=== PATIENT | male | born 1950 | race Caucasian/White ===

== ENCOUNTER 2019-09-06 19:20 | Inpatient (IN) | payer OTHER ==
[~2019-09-06 19:20] MED LIST: ISOVUE-370 76%-LOCM 1 ML ONE
[2019-09-06] MEDS ORDERED: Rocuronium Bromide 10 MG/ML (10ML VIAL) ONE (19:53)
--- NOTE | 2019-09-06 20:02 | CT ---
CT OF BRAIN PERFORMED WITHOUT CONTRAST ENHANCEMENT: 09/06/19 HISTORY: Patient found unresponsive. There is some mild ventricular and sulcal prominence. There is no signs of intracerebral hemorrhage o r extra-axial fluid collections. No mass lesion or mass effect. The mastoid air cells and visualized sinuses are clear. IMPRESSION: No acute intracranial abnormalities. POS: [facility]
[2019-09-06 20:06] LABS: #Basophils 0.1 thou/uL (0.0-0.2); #Eosinphils 0.8 thou/uL (0.0-0.7); #Lymphocytes 1.6 thou/uL (1.20-3.40); #Monocytes 0.7 thou/uL (0.11-0.59); #Neutrophils 5.5 thou/uL (1.40-6.50); %Basophils 0.6 % (0.0-1.0); %Eosinophils 9.3 % (0.0-10.0); %Lymphocytes 18.4 % (21.0-51.0); %Monocytes 7.9 % (0.0-10.0); %Neutrophils 63.9 % (42.0-75.0); Hemoglobin 15.5 g/dL (14.0-18.0); Mean Corpuscular HGB CONC 33.5 g/dL (32.0-36.0); Mean Corpuscular Hemoglobin 31.3 pg (27.0-31.0); Mean Corpuscular Volume 93.6 fL (78.0-98.0); Mean Platelet Volume 7.4 fL (7.4-10.4); Platelet Count 238 thou/uL (130-400); RBC Distribution Width 12.2 % (11.5-14.5); Red Blood Cell (RBC) Count 4.96 mill/uL (4.70-6.10); White Blood Cell (WBC) Count 8.6 thou/uL (4.8-10.8)
[2019-09-06] MEDS ORDERED: fentaNYL Citrate/PF 2,000 MCG in Sodium Chloride 0.9% 60 ML IV SCH (20:11)
[2019-09-06 20:19] LABS: INR-International Normal Ratio 1.8; PTT 33.5 SEC (22.9-36.1)
[2019-09-06 20:23] LABS: ALT (SGPT) 15 U/L (8-55); AST (SGOT) 22 U/L (5-34); Albumin 3.9 g/dL (3.4-4.8); Alkaline Phosphatase 82 U/L (40-110); Anion Gap 15 mmol/L (10-20); BUN (Urea Nitrogen) 16 mg/dL (8.4-25.7); Bilirubin, Total 0.6 mg/dL (0.2-1.2); CK (CPK) 864 U/L (30-200); Calc. Creatinine Clearance 0 mL/min (70-130); Calcium 9.4 mg/dL (7.8-10.44); Carbon Dioxide 22 mmol/L (23-31); Chloride 105 mmol/L (98-107); Estimated GFR-MDRD 56; Globulin 3.3 g/dL (2.4-3.5); Glucose 135 mg/dL (80-115); Potassium 4.5 mmol/L (3.5-5.1); Protein, Total 7.2 g/dL (5.8-8.1); Sodium 137 mmol/L (136-145)
[2019-09-06 20:32] LABS: Actual Bicarbonate (HCO3a) 20.3 mEq/L (22-28); Analyzer IN Cardio ER; Base Excess (BEa) -2.5 mEq/L (-2.0 to +3.0); CO2 Tension 30.5 mmHg (35.0-45.0); Calcium, Ionized 1.22 mmol/L (1.12-1.30); Carboxyhemoglobin (COHb) 0.8 gm% (0.0-3.0); Hemoglobin (Hb) 15.7 g/dL (14.0-18.0); O2 Tension (PaO2) 215.5 mmHg (> 80.0); Potassium - ABG Lab 4.29 mmol/L (3.70-5.30); pH, Arterial 7.44 (7.35-7.45)
[2019-09-06 20:34] LABS: ALV-art Gradient 459.375 (0-20); Puncture Site RRA
[2019-09-06 20:36] LABS: CKMB 6.4 ng/mL (0-6.6)
[2019-09-06 20:47] LABS: Acetaminophen Less than 6.0 mcg/mL (10.0-30.0); Alcohol Less than 10 mg/dL (Less than 10); Salicylate Less than 8.0 mg/dL (15.0-30.0)
[2019-09-06 20:51] LABS: Bilirubin Negative (Negative); Blood, Urine Negative (Negative); Clarity Clear (Clear); Glucose, Urine (Dipstick) Normal (Negative); Leukocyte Negative Leu/uL (Negative); Nitrite Negative (Negative); Protein, Urine (Dipstick) Negative (Neg-Trace); Urobilinogen Normal mg/dL (Less than 2)
[2019-09-06 21:03] LABS: Amphetamine Not Detected (NotDetected); Barbiturates Screen Not Detected (NotDetected); Benzodiazepine Screen Not Detected (NotDetected); Cocaine Metabolite Screen Not Detected (NotDetected); Medtox Control Line Valid? VALID (VALID); Medtox Reader # READER 4; Methadone Not Detected (NotDetected); Methamphetamine Not Detected (NotDetected); Opiate Screen Not Detected (NotDetected); Oxycodone Screen Not Detected (NotDetected); Phencyclidine (PCP) Not Detected (NotDetected); THC/Cannabinoid Screen Not Detected (NotDetected); Tricyclic Screen Not Detected (NotDetected)
--- NOTE | 2019-09-06 21:05 | RAD ---
XR Chest 1 View Portable HISTORY: Postintubation COMPARISON: 01/24/2013 study FINDINGS: Heart size is enlarged. There are postop sternotomy changes and defibrillator. Atelectatic changes are seen in the lung bases. The endotracheal tube is in satisfactory position. The NG tube is difficult to visualize but I believ e to be below the hemidiaphragm. IMPRESSION: Endotracheal tube in satisfactory position
--- NOTE | 2019-09-06 22:07 | CT ---
CT angiogram of head and neck performed with intravenous contrast enhancement with 3-D reconstruction s: HISTORY: Altered mental status. Unresponsive. Asymmetric pupils. COMPARISON: CT done earlier today. FINDINGS: Lung apices show chronic appearing change. Endotracheal tube appears to be in satisfactory position. The thyroid gland is normal. Parotid and submandibular regions appear unremarkable. There is a separate origin of the left common carotid artery. The vertebral arteries appear codominan t is some moderate atherosclerotic narrowing of the left vertebral artery near the level the foramen magnum. The right vertebral makes the main contribution to the basilar artery. The right common carotid internal and external carotid arteries show no significant stenosis nascent criteria, there is some calcified plaque formation present at the origin of the internal and external carotid arteries. There is also atherosclerotic plaque at the origin the left common carotid artery but no stenosis of the common internal or external carotid arteries. CT angiogram of head: The anterior and middle cerebral arteries and their branches appear unremarkabl e. The basilar artery and posterior cerebral arteries appear unremarkable. IMPRESSION: Essentially unremarkable CT angiogram of head and neck. Incidental note is made is some m ild to moderate narrowing of the distal left vertebral artery.
[2019-09-06] MEDS ORDERED: Ondansetron ODT 4 MG TAB PO PRN (23:13)
[2019-09-06] MEDS ORDERED: hydrALAZINE 20 MG/ML VIAL SLOW IVP PRN (23:13)
[2019-09-06] MEDS ORDERED: CCU Electrolyte Replacement 1 EACH FS ONE (23:13)
[2019-09-06] MEDS ORDERED: Ondansetron PF 4 MG/2 ML Vial IVP PRN (23:13)
[2019-09-06] MEDS ORDERED: CCU ELECTROLYTE REPLACEMENT PROTOCOL FS PRN (23:18)
[2019-09-06] MEDS ORDERED: Potassium Chloride 20 MEQ TAB PO PRN (23:18)
[2019-09-06] MEDS ORDERED: Potassium Phosphate 12 MMOL in Sodium Chloride 0.9% 250 ML 250 ML IV PRN (23:18)
[2019-09-06] MEDS ORDERED: Potassium Chloride 40 MEQ in Premix Bag 1 BAG IVPB PRN (23:18)
[2019-09-06] MEDS ORDERED: Magnesium Oxide 400 MG TAB PO PRN ×2 (23:18)
[2019-09-06] MEDS ORDERED: Potassium Phosphate 15 MMOL in Sodium Chloride 0.9% 250 ML 250 ML IV PRN (23:18)
[2019-09-06] MEDS ORDERED: Magnesium 2 GM/50 ML 2 GM in Premix Bag 1 BAG IVPB PRN (23:18)
[2019-09-06] MEDS ORDERED: PHOS-NAK 1 PKT PACK PO PRN ×2 (23:18)
[2019-09-06] MEDS ORDERED: Potassium Phosphate 9 MMOL in Sodium Chloride 0.9% 100 ML IVPB PRN (23:18)
[2019-09-06] MEDS ORDERED: Potassium Chloride 40 MEQ in Sodium Chloride 0.9% 250 ML 250 ML IVPB PRN (23:18)
[2019-09-07] MEDS ORDERED: HumaLOG 300 UNITS/3 ML VIAL SC PRN (00:12)
[2019-09-07] MEDS ORDERED: Dextrose 5% in Water 1,000 ML IV PRN (00:12)
[2019-09-07] MEDS ORDERED: Dextrose 50% Abboject 50 ML SYRINGE SLOW IVP PRN (00:12)
[2019-09-07] MEDS: Sodium Chloride 0.9% 1,000 ML IV SCH ×2 (00:25→19:34)
[2019-09-07 01:08] LABS: Troponin I 0.023 ng/mL (< 0.028)
--- NOTE | 2019-09-07 01:37 | HP ---
PRIMARY CARE PROVIDER: [facility]. CHIEF COMPLAINT: Found down. HISTORY OF PRESENT ILLNESS: This is a 69-year-old male, who presents to [facility] Emergency Department in transfer from [facility], where patient is a current inmate. The patient was apparently discovered in his cell, unresponsive by the guards. The time course the patient was down his unknown and patient is unable to provide any specific history due to mechanical ventilation and unresponsiveness. The history is obtained after review of electronic medical records, as well as discussions with the emergency room attending and the guards at the bedside. The patient is currently incarcerated at the [facility]. The patient is normally ambulatory according to the guards and does not use an assistive device. Due to patient's altered mental status and inability to protect airway, the patient was intubated. The patient apparently had pulse and did not require CPR. The patient underwent extensive evaluation in the emergency room including CT of the brain showing no acute intracranial process. EKG showed atrial sensed V paced rhythm in the context of pacemaker/defibrillator. Screening metabolic survey was essentially unrevealing with ammonia level of 29 and glucose in the 130s. Urine drug screen was unremarkable and patient was stabilized in the emergency room and transferred to the Critical Care Unit for further evaluation. PAST MEDICAL HISTORY: 1. Coronary artery disease. 2. Diabetes mellitus type 2, insulin requiring. 3. Atrial fibrillation/flutter. 4. Chronic kidney disease, stage 3. 5. Congestive heart failure, unknown type. 6. Chronic anticoagulation with Coumadin. 7. Hyperlipidemia. 8. Hypertension. 9. Prostate carcinoma. PAST SURGICAL HISTORY: Status post cardiac pacemaker placement. CURRENT MEDICATIONS: 1. Plavix 75 mg p.o. daily. 2. Ferrous sulfate 325 mg 1 tablet p.o. b.i.d. 3. Mexiletine 150 mg p.o. t.i.d. 4. Novolin 40 units subcutaneously q.a.m. and 27 units at bedtime. 5. Novolin R insulin sliding scale. 6. Ranexa 500 mg p.o. b.i.d. 7. Coumadin 5 mg p.o. daily. 8. Lipitor 80 mg p.o. daily. 9. Lasix 40 mg p.o. b.i.d. 10. Isosorbide mononitrate 60 mg p.o. daily. 11. Lisinopril 20 mg p.o. daily. 12. Metoprolol 25 mg p.o. b.i.d. 13. Nitroglycerin 0.4 mg sublingually q.5 minutes p.r.n. chest pain. 14. Potassium chloride 20 mEq one tablet p.o. daily. 15. Terazosin 5 mg p.o. daily. ALLERGIES: NO KNOWN DRUG ALLERGIES. FAMILY HISTORY: Unobtainable due to patient's altered mental status. SOCIAL HISTORY: Incarcerated at [facility] unit. No current alcohol, tobacco, or illicit drug use. REVIEW OF SYSTEMS: Unobtainable due to patient's altered mental status and respiratory failure. PHYSICAL EXAMINATION: VITAL SIGNS: On admission, blood pressure 146/95, pulse 62, respiratory rate 21, temperature 98 degrees Fahrenheit, O2 saturation 92%. GENERAL APPEARANCE: This is a 69-year-old male, sedate on mechanical ventilation. HEENT: Pupils are minimally reactive to light and accommodation. No scleral icterus. No conjunctival injection. Nares patent. OP is clear. ET tube in place. NECK: Supple. No cervical adenopathy. No thyromegaly. No carotid bruits. No JVD appreciated. NECK: Supple. CHEST: Lungs are clear to auscultation bilaterally. CARDIOVASCULAR: S1, S2 without noted murmur, rub, or gallop. Left upper chest wall with pacemaker defibrillator device in place. ABDOMEN: Obese, soft, nontender, and nondistended. No palpable mass. No rebound or guarding elicited. EXTREMITIES: Warm and dry with fair turgor. No clubbing, cyanosis, or asymmetric edema appreciated. Pulses are palpable distally at the dorsalis pedis, posterior tibial, and popliteal arteries bilaterally. Capillary refill less than 2 seconds. : Andino catheter in place with scant clear urine. NEUROLOGIC: Sedate on mechanical ventilation. PERTINENT LABORATORY AND X-RAY FINDINGS: Sodium 137, potassium 4.5, chloride 105, CO2 of 22, anion gap 15, BUN 16, creatinine 1.27, estimated GFR 56, glucose 135, calcium 9.4. LFTs within normal limits. Total CK of 864. Ammonia level 29. Troponin I 0.046. TSH 1.61. CBC within normal limits. PT 21, INR 1.8, PTT 33.5. ABG dated 09/06/2019, showed a pH of 7.44, pCO2 of 31, PO2 of 216, bicarb 20.3, O2 saturation 99% on 100% FiO2. Urinalysis negative. Urine drug screen negative. CT of the brain without contrast dated 09/06/2019, showed no acute intracranial process. CT angiogram of [place] dated 09/06/2019, showed no acute focal stenosis. Portable chest x-ray dated 09/06/2019, showed endotracheal tube in appropriate position. Defibrillator pacemaker device in appropriate positioning. No acute infiltrate identified. EKG dated 09/06/2019, by my interpretation shows A sensed V paced rhythm in the 70s. ASSESSMENT AND PLAN: 1. Acute hypoxic respiratory failure. Exact etiology unclear. We will continue mechanical ventilation with SIMV. Repeat portable chest x-ray and ABG in the a.m. Consult Pulmonology Service in the a.m. for further management. 2. Acute metabolic encephalopathy. We will continue supportive management as outlined previously. Consider MRI imaging of the brain after confirming type of current pacemaker defibrillator. We will interrogate pacemaker defibrillator device in the a.m. 3. Sick sinus syndrome with pacemaker/defibrillator. We will interrogate pacemaker device in the a.m. We will confirm if MRI compatible. 4. Chronic kidney disease, stage 3. Avoid nephrotoxic agents and limit contrast exposure. Continue low volume intravenous normal saline at 50 mL/h. 5. Chronic anticoagulation. Repeat PT/INR in the a.m. Confirm Coumadin dosing. 6. Prophylaxis. SCDs while in bed. Pepcid 20 mg IV b.i.d. 7. Code status is full. Surrogate medical decision maker is [place] [facility] [employer]. Job ID: [id number]
[2019-09-07 06:11] LABS: Hemoglobin A1c 6.5 % (4.0-6.0); INR-International Normal Ratio 1.6; Prothrombin Time 19.2 SEC (12.0-14.7)
[2019-09-07 06:27] LABS: ALT (SGPT) 17 U/L (8-55); AST (SGOT) 26 U/L (5-34); Albumin 3.8 g/dL (3.4-4.8); Alkaline Phosphatase 88 U/L (40-110); Anion Gap 18 mmol/L (10-20); BUN (Urea Nitrogen) 16 mg/dL (8.4-25.7); Bilirubin, Total 1.1 mg/dL (0.2-1.2); CK (CPK) 955 U/L (30-200); Calc. Creatinine Clearance 85 mL/min (70-130); Calcium 9.3 mg/dL (7.8-10.44); Carbon Dioxide 22 mmol/L (23-31); Chloride 104 mmol/L (98-107); Estimated GFR-MDRD 57; Globulin 2.8 g/dL (2.4-3.5); Glucose 117 mg/dL (80-115); Magnesium 2.2 mg/dL (1.6-2.6); Potassium 4.9 mmol/L (3.5-5.1); Protein, Total 6.6 g/dL (5.8-8.1); Sodium 139 mmol/L (136-145)
[2019-09-07 06:29] LABS: Troponin I 0.054 ng/mL (< 0.028)
[2019-09-07 06:31] LABS: Band 2 % (5-11); Eosinophils 9 % (0-10); Hemoglobin 16.1 g/dL (14.0-18.0); Lymphocytes 25 % (21-51); MDiff Complete? YES; Mean Corpuscular HGB CONC 33.4 g/dL (32.0-36.0); Mean Corpuscular Hemoglobin 32.9 pg (27.0-31.0); Mean Corpuscular Volume 98.4 fL (78.0-98.0); Mean Platelet Volume 7.8 fL (7.4-10.4); Monocytes 10 % (0-10); Neutrophil 54 % (42-75); Platelet Count 228 thou/uL (130-400); Platelet Morphology Comment Appears Adequate; RBC Distribution Width 12.4 % (11.5-14.5); RBC Morphology Normal; Red Blood Cell (RBC) Count 4.89 mill/uL (4.70-6.10); White Blood Cell (WBC) Count 7.3 thou/uL (4.8-10.8)
[2019-09-07 06:49] LABS: Actual Bicarbonate (HCO3a) 25.6 mEq/L (22-28); Base Excess (BEa) 2.9 mEq/L (-2.0 to +3.0); CO2 Tension 33.9 mmHg (35.0-45.0); Calcium, Ionized 1.19 mmol/L (1.12-1.30); Carboxyhemoglobin (COHb) 1.4 gm% (0.0-3.0); Hemoglobin (Hb) 15.4 g/dL (14.0-18.0); O2 Tension (PaO2) 70.2 mmHg (> 80.0); Potassium - ABG Lab 4.18 mmol/L (3.70-5.30)
[2019-09-07 07:05] LABS: Puncture Site RBRACH
[2019-09-07 07:06] LABS: ALV-art Gradient 208.275 (0-20)
--- NOTE | 2019-09-07 07:42 | RAD ---
XR Chest 1 View Portable History: Respiratory failure Comparison: Radiograph prior day Findings: Endotracheal tube tip sits at the level of clavicles. Mediastinal evaluation is limited due to the overlying wires. Cardiac device appears similar. Heart size is enlarged. Progressive lower lobe atelectasis. Small eff usions. Enteric tube tip not well seen. Impression: Progressive volume loss and lower lobe atelectatic changes.
--- NOTE | 2019-09-07 08:28 | CON ---
DATE OF CONSULTATION: 09/07/2019 TIME SPENT: 35 minutes critical care time. REASON FOR CONSULTATION: Critical care management. HISTORY OF PRESENT ILLNESS: This is a 69-year-old male, who apparently was found down in his cell, not sure how long he had been down. He was intubated secondary to an inability to protect his airway. 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 He has been stable since admission to the critical care unit, they have had problems with his pacemaker capturing. PAST MEDICAL HISTORY: 1. Coronary artery disease. 2. Diabetes mellitus type 2. 3. Atrial fibrillation/flutter. 4. Chronic kidney disease stage 3. 5. Congestive heart failure. 6. Chronically anticoagulated on Coumadin. 7. Hyperlipidemia. 8. Hypertension. 9. Prostate cancer. PAST SURGICAL HISTORY: Pacemaker placement. MEDICATIONS: Prior to admission, Plavix 75 mg daily, iron sulfate 325 mg b.i.d., mexiletine 150 mg t.i.d., Novolin insulin 40 units in the morning and 27 units in the evening, regular insulin sliding scale, Ranexa 500 mg b.i.d., Coumadin 5 mg daily, Lipitor 80 mg daily, Lasix 40 mg b.i.d., isosorbide 60 mg daily, lisinopril 20 mg daily, metoprolol 25 mg b.i.d., nitroglycerin p.r.n., potassium chloride 20 mEq daily, and trazodone 5 mg daily. ALLERGIES: NONE. FAMILY MEDICAL HISTORY: Unremarkable. SOCIAL HISTORY: [facility] inmate. No alcohol, tobacco, or illicit drug use. REVIEW OF SYSTEMS: Cannot be obtained as the patient is currently intubated. PHYSICAL EXAMINATION: VITAL SIGNS: Heart rate 65, blood pressure 110/58, respiratory rate 16, O2 saturation 100%, and temperature 99.8. He is currently on a fentanyl drip. NEUROLOGIC: He will wake up. His pupils are about 4 mm and do not react briskly to light. He is able to follow commands without difficulty. HEENT: Otherwise unremarkable. NECK: No adenopathy or JVD. LUNGS: Fairly clear anteriorly. CARDIAC: S1, S2. Intermittently paced. ABDOMEN: Soft, nontender to palpation. EXTREMITIES: No clubbing, cyanosis, or edema. LABORATORY DATA: INR is 1.6. White blood cell count 7.3, hematocrit 48.2, and platelet count 228. PH of 7.50, pCO2 of 33, pO2 of 70 on SIMV rate 14, tidal volume 550, PEEP 5, pressure support 10, FiO2 45%. Sodium 139, potassium 4.9, chloride 104, CO2 of 22, BUN 16, creatinine 1.3 glucose 117. CK 955. BNP 172.7. Chest x-ray demonstrates ET tube in good position. Increased interstitial markings bilaterally. Some edema on the right. ASSESSMENT: 1. Status post cardiopulmonary arrest. 2. Encephalopathy. 3. Sick sinus syndrome. 4. Chronic kidney disease. 5. Diabetes mellitus. PLAN: 1. Pacemaker needs to be interrogated and likely Cardiology needs to be involved. 2. Continue mechanical ventilation for the time being. 3. Restart his warfarin. 4. Adjust mechanical ventilation settings. 5. Hopefully extubate soon. Job ID: [id number]
[2019-09-07] MEDS: Famotidine/PF 20 mg/2ml Vial SLOW IVP SCH ×2 (08:39→22:22)
[2019-09-07] MEDS: Famotidine 20 MG TAB PER TUBE SCH ×2 (08:40→21:13)
[2019-09-07] MEDS ORDERED: Prevnar 13-Val Conj/PF 0.5 ML SYRINGE IM ONE (09:00)
[2019-09-07] MEDS ORDERED: FLU VACC TS2019-20(65YR UP)/PF 180 MCG/0.5 ML SYRINGE IM ONE (09:00)
--- NOTE | 2019-09-07 11:56 | CON ---
DATE OF CONSULTATION: HISTORY OF PRESENT ILLNESS: The patient is a 69-year-old gentleman, who presented after losing consciousness. The patient apparently has a history of a nonischemic cardiomyopathy. He has had previous placement of an automatic implantable cardiac defibrillator. The patient is incarcerated, and was apparently in his usual state of health when he suddenly lost consciousness. The patient was brought to the [facility] for further evaluation. The patient is intubated and sedated and unable to give a history. PAST MEDICAL HISTORY: 1. Cardiomyopathy. 2. Diabetes mellitus. 3. Hypertension. 4. Coronary artery disease. 5. BPH. PAST SURGICAL HISTORY: MEDICATIONS: Include; 1. Plavix 75 daily. 2. Iron 325 b.i.d. 3. Mexiletine 150 t.i.d. 4. Ranexa 500 b.i.d. 5. Warfarin 2.5 at bedtime. 6. Lipitor 80 at bedtime. 7. Lasix 40 daily. 8. Imdur 60 q.a.m. 9. Lisinopril 20 mg daily. 10. Metoprolol 25 mg p.o. b.i.d. 11. Potassium 20 daily. 12. Terazosin 5 daily. PHYSICAL EXAMINATION: GENERAL: Intubated gentleman, who is sedated. VITAL SIGNS: Blood pressure 134/80. NECK: No jugular venous distention. LUNGS: Clear to auscultation. HEART: Regular rate and rhythm. Normal S1 and S2. ABDOMEN: Distended. EXTREMITIES: Showed trace edema. LABORATORY DATA: Sodium 139, potassium 4.9, chloride 104, bicarbonate 22, BUN 16, creatinine 1.2, and glucose 117. White blood cell count 7.3, hemoglobin 16.1, hematocrit 48.2, and his platelets are 228. IMAGING DATA: His EKG revealed an electronic ventricular pacemaker. IMPRESSION: 1. Status post respiratory arrest. 2. History of severe cardiomyopathy. 3. History of paroxysmal atrial fibrillation. 4. History of automatic implantable cardioverter-defibrillator placement. 5. Diabetes mellitus. 6. Hypertension. PLAN: This gentleman presented with a probable respiratory arrest. The patient's cardiac enzymes revealed no evidence of myocardial infarction. There are no evidence of significant EKG changes. We will check the patient's echocardiogram. The pacemaker and AICD have been interrogated. He did not have ventricular tachycardia at the time of this incident. The patient will continue to be monitored in the ICU. We will follow this patient with you. This is a critical care note, the time is 1 hour. Job ID: [id number]
[2019-09-07] MEDS: Mexiletine HCl 150 MG CAP PO SCH ×2 (14:21→21:13)
--- NOTE | 2019-09-07 14:54 | PDOC.EVN ---
Event Note - Event Note Event Note: Seen and examined. Intubated. Pacemaker to be interrogated. CT of the head negative for acute intracranial pathology. Atrial fibrillation on Coumadin, subtherapeutic. MRI of the brain if defibrillator is compatible.
[2019-09-07] MEDS ORDERED: Warfarin Sodium 2.5 MG TAB PER TUBE SCH (17:00)
[2019-09-07] MEDS: Atorvastatin Calcium 40 MG TAB PO SCH (21:12)
[2019-09-07] MEDS: Carvedilol 3.125 MG TAB PO SCH (21:13)
[2019-09-08] MEDS: Acetaminophen 650 MG Suppository PR PRN ×2 (01:29→13:31)
[2019-09-08] MEDS ORDERED: Vancomycin HCl 1 GM in Premix Bag 1 BAG IVPB SCH (01:30)
[2019-09-08] MEDS: Cefepime 2 GM in Sodium Chloride 0.9% 100 ML IVPB SCH ×2 (02:52→13:35)
[2019-09-08 04:50] LABS: #Eosinphils 0.7 thou/uL (0.0-0.7); #Lymphocytes 1.7 thou/uL (1.20-3.40); #Monocytes 1.3 thou/uL (0.11-0.59); #Neutrophils 7.5 thou/uL (1.40-6.50); %Basophils 0.3 % (0.0-1.0); %Eosinophils 5.9 % (0.0-10.0); %Lymphocytes 15.5 % (21.0-51.0); %Monocytes 11.4 % (0.0-10.0); %Neutrophils 66.9 % (42.0-75.0); Hemoglobin 15.1 g/dL (14.0-18.0); Mean Corpuscular Hemoglobin 31.6 pg (27.0-31.0); Mean Corpuscular Volume 95.5 fL (78.0-98.0); Mean Platelet Volume 7.9 fL (7.4-10.4); Platelet Count 211 thou/uL (130-400); RBC Distribution Width 12.5 % (11.5-14.5); Red Blood Cell (RBC) Count 4.79 mill/uL (4.70-6.10); White Blood Cell (WBC) Count 11.2 thou/uL (4.8-10.8)
[2019-09-08 04:58] LABS: INR-International Normal Ratio 1.6; Prothrombin Time 19.4 SEC (12.0-14.7)
[2019-09-08 05:14] LABS: Anion Gap 18 mmol/L (10-20); BUN (Urea Nitrogen) 21 mg/dL (8.4-25.7); Calc. Creatinine Clearance 57 mL/min (70-130); Calcium 9.1 mg/dL (7.8-10.44); Carbon Dioxide 19 mmol/L (23-31); Chloride 108 mmol/L (98-107); Estimated GFR-MDRD 36; Glucose 126 mg/dL (80-115); Potassium 4.8 mmol/L (3.5-5.1); Sodium 140 mmol/L (136-145)
[2019-09-08 06:57] LABS: Actual Bicarbonate (HCO3a) 25.9 mEq/L (22-28); Base Excess (BEa) 1.3 mEq/L (-2.0 to +3.0); CO2 Tension 40.8 mmHg (35.0-45.0); Calcium, Ionized 1.22 mmol/L (1.12-1.30); Carboxyhemoglobin (COHb) 1.4 gm% (0.0-3.0); Hemoglobin (Hb) 15.1 g/dL (14.0-18.0); O2 Tension (PaO2) 62.2 mmHg (> 80.0); Potassium - ABG Lab 4.35 mmol/L (3.70-5.30); pH, Arterial 7.42 (7.35-7.45)
[2019-09-08 07:16] LABS: Puncture Site RBRACH
--- NOTE | 2019-09-08 07:51 | RAD ---
XR Chest 1 View Portable History: Pneumonia Comparison: Radiograph prior day Findings: Ventricular tube similar. Enteric tube tip not well seen. Exam is limited due to rightward rotation. Layering effusions and bibasilar atelectatic changes. No pneumothorax. Heart size markedly enlarged. Impression: Enlarging bibasilar effusions and progressive atelectasis.
[2019-09-08] MEDS ORDERED: DC Sedation Protocol FS ONE (08:20)
[2019-09-08] MEDS ORDERED: Furosemide 40 MG/4 ML VIAL SLOW IVP SCH (08:30)
[2019-09-08] MEDS ORDERED: Furosemide 20 MG/2 ML VIAL IVP SCH (08:30)
--- NOTE | 2019-09-08 08:58 | PRG ---
DATE OF SERVICE: 09/08/2019 35 minutes of critical care time. SUBJECTIVE: The patient is awake, follows commands. He will not open his eyes for some reason. OBJECTIVE: VITAL SIGNS: His temperature is 100.3. It has been as high as 102.1, pulse 70, blood pressure 104/64, O2 saturation 97%. A 24-hour intake 1660, output 1235. HEENT: Unremarkable. NECK: No adenopathy or JVD. LUNGS: Fairly clear anteriorly. CARDIAC: S1, S2, regular. Occasionally paced. ABDOMEN: Soft, nontender. EXTREMITIES: No clubbing, cyanosis, or edema. IMAGING STUDIES: His chest x-ray shows bilateral pulmonary edema. His echocardiogram showed an EF of 10% to 15% with impaired relaxation. LABORATORY DATA: Sodium 140, potassium 4.8, chloride 108, CO2 of 19, BUN 21, creatinine 1.8, glucose 126. White blood cell count 11.2, hematocrit 45.7, and platelet count 211. PH of 7.42, pCO2 of 40, PO2 of 62 on SIMV rate of 10, tidal volume 500, PEEP 5, pressure support 10, FiO2 40%. ASSESSMENT: 1. Status post cardiopulmonary arrest. 2. Encephalopathy. 3. Cardiomyopathy with decreased ejection fraction. 4. Sick sinus syndrome. 5. Chronic kidney disease. 6. Diabetes mellitus. PLAN: 1. Extubation trial. 2. Warfarin was restarted yesterday. 3. Stop IV fluids. Give one dose of Lasix. 4. Continue IV antibiotics. 5. Keep in ICU for today. 6. Continue to follow daily PT and INR. Job ID: [id number]
[2019-09-08] MEDS ORDERED: Lisinopril 20 MG TAB PO SCH (09:00)
[2019-09-08] MEDS: Carvedilol 3.125 MG TAB PO SCH ×2 (10:19→21:18)
[2019-09-08] MEDS: Clopidogrel Bisulfate 75 MG TAB PO SCH (10:20)
[2019-09-08] MEDS: Famotidine 20 MG TAB PER TUBE SCH ×2 (10:20→21:19)
[2019-09-08] MEDS: Famotidine/PF 20 mg/2ml Vial SLOW IVP SCH ×2 (10:22→21:18)
[2019-09-08] MEDS: Mexiletine HCl 150 MG CAP PO SCH ×3 (10:23→21:18)
--- NOTE | 2019-09-08 11:45 | PDOC.HOSPP ---
- Subjective Subjective: Seen and examined. Intubated and intensive care unit. Patient withdraws all for limbs from noxious stimuli. Coumadin sub therapeutic on admission, concern for CVA. MRI of the brain if his pacemaker is compatible. [employer] guards at bedside. - Objective Vital Signs & Weight: Vital Signs (12 hours) Temp Pulse Resp BP Pulse Ox 09/08/19 10:22 97/58 L 09/08/19 09:30 93 22 H 95 09/08/19 07:16 66 09/08/19 06:00 19 09/08/19 04:23 100.3 F H 09/08/19 04:00 17 09/08/19 03:00 100.3 F H 09/08/19 02:07 73 97/58 L 09/08/19 02:00 18 09/08/19 01:00 KENO ATTENDANT 102.1 F H Weight Admit Weight 238 lb 15.697 oz Weight 238 lb 15.697 oz Most Recent Monitor Data Heart Rate from ECG 70 NIBP 104/64 NIBP BP-Mean 77 Respiration from ECG 19 SpO2 97 I&O: 09/07/19 09/08/19 09/09/19 07:59 06:59 06:59 Intake Total Output Total Balance Result Diagrams: 09/08/19 04:37 09/08/19 04:37 Additional Labs: Accuchecks 09/08/19 09/08/19 09/07/19 10:21 00:55 22:13 POC Glucose 146 H 114 H 127 H 09/07/19 15:57 POC Glucose 137 H Radiology Reviewed by me: Yes Hospitalist ROS - Review of Systems ROS unobtainable: due to endotracheal tube - Medication Medications: Active Medications Generic Name Dose Route Start Last Admin Trade Name Freq PRN Reason Stop Dose Admin Acetaminophen 650 mg 09/06/19 23:13 09/08/19 01:29 KENO ATTENDANT Tylenol KS 650 mg Q4H PRN Administration Fever > 101 Atorvastatin Calcium 80 mg 09/07/19 21:00 09/07/19 21:12 Lipitor PO 80 mg HS CYDNEY Administration Carvedilol 3.125 mg 09/07/19 21:00 09/08/19 10:19 Coreg PO Not Given BID CYDNEY Clopidogrel Bisulfate 75 mg 09/08/19 09:00 09/08/19 10:20 Plavix PO Not Given DAILY CYDNEY Famotidine 20 mg 09/07/19 09:00 09/08/19 10:22 Pepcid SLOW IVP 20 mg Q12HR CYDNEY Administration Famotidine 20 mg 09/07/19 09:00 09/08/19 10:20 Pepcid PER TUBE Not Given BID CYDNEY Cefepime HCl 2 gm/ Sodium 100 mls @ 200 mls/hr 09/08/19 02:00 09/08/19 02:52 Chloride IVPB 100 mls 0200,1400 CYDNEY Administration Isosorbide Mononitrate 60 mg 09/08/19 09:00 09/08/19 10:22 Imdur PO Not Given DAILY CYDNEY Mexiletine HCl 150 mg 09/07/19 15:00 09/08/19 10:23 Mexiletine Hcl PO Not Given TID CYDNEY Ranolazine 500 mg 09/07/19 21:00 09/08/19 10:23 Ranexa PO Not Given BID CYDNEY Sodium Chloride 10 ml 09/07/19 09:00 09/08/19 10:23 Flush - Normal Saline IVF 10 ml Q12HR CYDNEY Administration - Exam General Appearance: NAD Eye: anicteric sclera ENT: normocephalic atraumatic, moist mucosa Neck: supple, symmetric, no JVD Heart: no murmur, no gallops, no rubs, irregular Respiratory: CTAB, no wheezes, no rales, no ronchi Gastrointestinal: soft, non-tender, non-distended, no guarding, no rigidity Extremities: no edema Skin: no lesions, no rashes Neurological - other findings: No appreciable focal neurologic deficits. Withdraws all 4 limbs to noxious Musculoskeletal: no muscle wasting Psychiatric: not oriented Hosp A/P (1) Acute respiratory failure Code(s): J96.00 - ACUTE RESPIRATORY FAILURE, UNSP W HYPOXIA OR HYPERCAPNIA Status: Acute (2) Afib Code(s): I48.91 - UNSPECIFIED ATRIAL FIBRILLATION Status: Chronic (3) Pacemaker Code(s): Z95.0 - PRESENCE OF CARDIAC PACEMAKER Status: Chronic (4) AMS (altered mental status) Code(s): R41.82 - ALTERED MENTAL STATUS, UNSPECIFIED Status: Acute (5) Syncope and collapse Code(s): R55 - SYNCOPE AND COLLAPSE Status: Acute (6) CAD (coronary artery disease) Code(s): I25.10 - ATHSCL HEART DISEASE OF [place] CORONARY ARTERY W/O ANG PCTRS Status: Acute (7) CHF (congestive heart failure) Code(s): I50.9 - HEART FAILURE, UNSPECIFIED Status: Acute (8) DM type 2, uncontrolled, with renal complications Code(s): E11.29 - TYPE 2 DIABETES MELLITUS W OTH DIABETIC KIDNEY COMPLICATION; E11.65 - TYPE 2 DIABETES MELLITUS WITH HYPERGLYCEMIA Status: Acute (9) CKD (chronic kidney disease) stage 3, GFR 30-59 ml/min Code(s): N18.3 - CHRONIC KIDNEY DISEASE, STAGE 3 (MODERATE) Status: Acute (10) HTN (hypertension) Code(s): I10 - ESSENTIAL (PRIMARY) HYPERTENSION Status: Acute (11) HLD (hyperlipidemia) Code(s): E78.5 - HYPERLIPIDEMIA, UNSPECIFIED Status: Acute (12) CLAUDE (acute kidney injury) Code(s): N17.9 - ACUTE KIDNEY FAILURE, UNSPECIFIED Status: Acute - Plan Plan: Intensive care unit pulmonology consultation, recommendations appreciated Cardiology consultation, recommendations appreciated vent management, SBT when able, mental status is limiting factor chest x-ray does not demonstrate any focal pneumonia or other acute cardiothoracic process acute respiratory failure secondary to altered mental status, intubated for airway protection pacemaker interrogation MRI the brain, if pacemaker is compatible echocardiogram with EF 10-15% cardiomyopathy regimen as able oral anticoagulation with Coumadin for Afib, though subtherapeutic on admission concern for acute CVA Empiric ABX with cefepime, UA negative, CXR does not demonstrate focal PNA, no obvious cellulitis or skin lesions blood sugar control with insulin breathing treatments as needed blood pressure control CT scan of the brain on admission does not demonstrate any acute intracranial process
[2019-09-08] MEDS: Scopolamine 1.5 mg/72 hour Patch TD SCH (18:44)
[2019-09-08 20:17] LABS: Actual Bicarbonate (HCO3a) 23.5 mEq/L (22-28); Base Excess (BEa) -1.5 mEq/L (-2.0 to +3.0); CO2 Tension 40.8 mmHg (35.0-45.0); Calcium, Ionized 1.18 mmol/L (1.12-1.30); Carboxyhemoglobin (COHb) 1.6 gm% (0.0-3.0); Hemoglobin (Hb) 15.4 g/dL (14.0-18.0); Potassium - ABG Lab 4.71 mmol/L (3.70-5.30); pH, Arterial 7.38 (7.35-7.45)
[2019-09-08 20:20] LABS: O2 Tension (PaO2) 59.3 mmHg (> 80.0)
[2019-09-08 20:21] LABS: Puncture Site RRA
[2019-09-08] MEDS: Warfarin Sodium 2 MG TAB PER TUBE SCH (21:17)
[2019-09-08] MEDS: Atorvastatin Calcium 40 MG TAB PO SCH (21:18)
--- NOTE | 2019-09-09 00:43 | OP ---
DATE OF PROCEDURE: 09/08/2019 PROCEDURE PERFORMED: Fiberoptic bronchoscopy. PREOPERATIVE DIAGNOSIS: Respiratory failure, mucus plugging. POSTOPERATIVE DIAGNOSIS: Extensive mucous plugging present from the adalberto down to the right lower lobe. ANESTHESIA: None. DESCRIPTION OF PROCEDURE: Respiratory therapist was having trouble doing NT suction on the patient. I brought a 2.2 Ambu bronchoscope to the bedside and placed this down the right naris. The vocal cords were identified. There were extensive mucoid secretions present in the supraglottic area. These were aspirated. Mucus was present down the trachea into the right mainstem bronchus and right lower lobe. This was aspirated easily. The patient tolerated the procedure well. Job ID: [id number]
[2019-09-09] MEDS: Cefepime 2 GM in Sodium Chloride 0.9% 100 ML IVPB SCH ×2 (01:51→14:13)
--- NOTE | 2019-09-09 03:19 | OP ---
DATE OF PROCEDURE: 09/08/2019 PROCEDURE: Fiberoptic bronchoscopy with endotracheal intubation. INDICATION: Respiratory failure. DESCRIPTION OF PROCEDURE: The patient has failed BiPAP, therefore this necessitated him being intubated again. Using a 2.2 Ambu bronchoscope, he was reintubated orally with an 8.0 cuffed endotracheal tube on the first attempt. Tube was secured at 24 cm from the lip. He was placed back on mechanical ventilation. Job ID: [id number]
[2019-09-09 05:53] LABS: #Eosinphils 0.5 thou/uL (0.0-0.7); #Lymphocytes 1.2 thou/uL (1.20-3.40); #Monocytes 0.9 thou/uL (0.11-0.59); #Neutrophils 8.3 thou/uL (1.40-6.50); %Basophils 0.4 % (0.0-1.0); %Eosinophils 4.2 % (0.0-10.0); %Lymphocytes 11.1 % (21.0-51.0); %Monocytes 7.9 % (0.0-10.0); %Neutrophils 76.4 % (42.0-75.0); Hemoglobin 14.2 g/dL (14.0-18.0); Mean Corpuscular HGB CONC 32.6 g/dL (32.0-36.0); Mean Corpuscular Hemoglobin 30.9 pg (27.0-31.0); Mean Corpuscular Volume 94.8 fL (78.0-98.0); Mean Platelet Volume 7.9 fL (7.4-10.4); Platelet Count 219 thou/uL (130-400); RBC Distribution Width 12.3 % (11.5-14.5); White Blood Cell (WBC) Count 10.8 thou/uL (4.8-10.8)
[2019-09-09 05:59] LABS: INR-International Normal Ratio 1.9; PTT 46.9 SEC (22.9-36.1); Prothrombin Time 21.8 SEC (12.0-14.7)
[2019-09-09 06:11] LABS: Anion Gap 15 mmol/L (10-20); BUN (Urea Nitrogen) 28 mg/dL (8.4-25.7); Calc. Creatinine Clearance 55 mL/min (70-130); Calcium 9.1 mg/dL (7.8-10.44); Carbon Dioxide 25 mmol/L (23-31); Chloride 108 mmol/L (98-107); Estimated GFR-MDRD 34; Glucose 149 mg/dL (80-115); Potassium 4.6 mmol/L (3.5-5.1); Sodium 143 mmol/L (136-145)
[2019-09-09 06:37] LABS: Base Excess (BEa) 0.7 mEq/L (-2.0 to +3.0); CO2 Tension 39.4 mmHg (35.0-45.0); Calcium, Ionized 1.18 mmol/L (1.12-1.30); Carboxyhemoglobin (COHb) 1.4 gm% (0.0-3.0); Hemoglobin (Hb) 14.7 g/dL (14.0-18.0); O2 Tension (PaO2) 74.2 mmHg (> 80.0); Potassium - ABG Lab 4.53 mmol/L (3.70-5.30); Puncture Site RRA; pH, Arterial 7.42 (7.35-7.45)
--- NOTE | 2019-09-09 07:57 | CT ---
PRELIMINARY REPORT/[facility]/EMERGENCY AFTER HOURS PROCEDURE: PROCEDURE INFORMATION: Exam: CT Head Without Contrast Exam date and time: 09/09/2019 3:40 AM Clinical history: 69 years old, male; Altered mental status/memory loss; Patient HX: AMS TECHNIQUE: Imaging protocol: Computed tomography of the head without contrast. COMPARISON: CT Brain WO Con 09/06/2019 7:47 PM FINDINGS: Brain: Johnna parietal encephalomalacia. No acute hemorrhage. Patchy whitte matter hypodensities are no nspecific but may be seen in small vessel chronic ischemic changes. No mass effect. Left thalamic focal hypodensity extending into the midbrain is inderminate. Ventricles: No ventriculomegaly. Bones/joints: No acute fracture. Sinuses: Scattered paranasal sinuses mucosal thickenning with fluid levels compatible with acute sinu sitis. Mastoid air cells: Visualized mastoid air cells are well aerated. Soft tissues: Unremarkable. IMPRESSION: 1. Left thalamic focal hypodensity extending into the midbrain is inderminate. 2. Scattered paranasal sinuses mucosal thickenning with fluid levels compatible with acute sinusitis . Thank you for allowing us to participate in the care of your patient. Dictated and Authenticated by: Meg Patino MD 09/09/2019 4:02 AM Central Time ([place] & [place]) FINAL REPORT EMERGENT AFTER HOURS NONCONTRAST CT HEAD: HISTORY: Altered mental status. COMPARISON: 09/06/2019. IMPRESSION: 1. Low-density focus in the left thalamus with extension of the low density area into the midbrain. T his area was not seen on study of 09/06/2019 and is suggestive of an acute to subacute lacunar infarction. 2.Stable area of encephalomalacia in the left parietal lobe likely due to remote infarction. 3. Toth sinus disease. 4. Findings are in agreement with the preliminary report by SEVERIANO. Findings were also discussed with Cher Cantor on 09/09/2019 at 0756 hours. CODE CR Transcribed Date/Time: 09/09/2019 8:05 AM
--- NOTE | 2019-09-09 08:26 | PRG ---
DATE OF SERVICE: 09/09/2019 TIME SPENT: 35 minutes of critical care time. SUBJECTIVE: The patient remains intubated on mechanical ventilation after being reintubated yesterday. His main issue has been inability to control his secretions. OBJECTIVE: VITAL SIGNS: On exam, temperature is 99.3, pulse 75, blood pressure 125/69, and O2 saturation 100%. A 24-hour intake 636, output 1549. HEENT: He will not open his eyes to commands. He will try to protrude his tongue when asked. He has endotracheal tube in place. NECK: No adenopathy or JVD. LUNGS: Coarse breath sounds bilaterally. CARDIOVASCULAR: S1 and S2. Regular. ABDOMEN: Soft and nontender. EXTREMITIES: No edema. NEUROLOGIC: He will follow commands with his extremities without difficulty. LABORATORY DATA: Sodium 143, potassium 4.6, chloride 108, CO2 of 25, BUN 28, creatinine 1.9, and glucose 149. White blood cell count 10.8, hematocrit 43.6, and platelet count 219. PH of 7.42, pCO2 of 39, pO2 of 74 on SIMV rate 16, tidal volume 500, PEEP 5, pressure 10, and FiO2 of 50%. His chest x-ray demonstrates basilar infiltrate on the right. ASSESSMENT: 1. Acute respiratory failure, requiring mechanical ventilation. 2. Suspected brainstem stroke. I do not see anything on the CT this morning and unfortunately, he cannot have an MRI because of his pacemaker. 3. Status post cardiopulmonary arrest. 4. Cardiomyopathy with low ejection fraction. 5. Sick sinus syndrome. 6. Chronic kidney disease. 7. Diabetes mellitus. PLAN: 1. I will add some Provigil to see if that will help with his mental status. 2. Keep intubated until mental status improves. 3. Continue warfarin and Plavix that he was previously taking. 4. Start tube feeds. 5. Continue antibiotics for right lower lobe infiltrate, which may be aspiration related from his original rest. 6. Ultimately, may need a tracheostomy if he cannot control his secretions. Job ID: [id number]
[2019-09-09] MEDS: Clopidogrel Bisulfate 75 MG TAB PO SCH (08:47)
[2019-09-09] MEDS: Mexiletine HCl 150 MG CAP PO SCH ×3 (08:47→21:32)
[2019-09-09] MEDS: Famotidine 20 MG TAB PER TUBE SCH ×2 (08:47→21:32)
[2019-09-09] MEDS: Carvedilol 3.125 MG TAB PO SCH ×2 (08:47→21:32)
--- NOTE | 2019-09-09 09:23 | RAD ---
PORTABLE CHEST 1 VIEW: Date: 09/09/19 Time: 0425 hours HISTORY: Pneumonia, respiratory failure. FINDINGS/IMPRESSION: No significant interval change is seen, allowing for differences in technique and position. POS: OFF
[2019-09-09] MEDS: Modafinil 100 MG TAB PER TUBE SCH (10:13)
--- NOTE | 2019-09-09 13:31 | PDOC.HOSPP ---
- Subjective Subjective: Seen and examined. Patient re-intubated for airway protection. Moves all 4 limbs. Patient on no sedation, will not open eyes, occasionally follows commands though not consistently. - Objective Vital Signs & Weight: Vital Signs (12 hours) Temp Pulse Resp BP Pulse Ox 09/09/19 12:00 18 09/09/19 11:00 99.3 F 09/09/19 10:44 63 112/72 09/09/19 10:00 16 09/09/19 08:00 16 100 09/09/19 07:04 71 125/69 09/09/19 07:00 100.3 F H 09/09/19 06:00 16 09/09/19 04:00 99.3 F 16 09/09/19 02:24 64 129/84 09/09/19 02:00 16 Weight Admit Weight 238 lb 15.697 oz Weight 238 lb 15.697 oz Most Recent Monitor Data Heart Rate from ECG 75 NIBP 112/64 NIBP BP-Mean 80 Respiration from ECG 19 SpO2 100 I&O: 09/08/19 09/09/19 09/10/19 06:59 06:59 06:59 Intake Total 636 100 Output Total 1549 170 Balance -913 -70 Result Diagrams: 09/09/19 05:34 09/09/19 05:34 Additional Labs: Accuchecks 09/08/19 09/08/19 17:50 12:37 POC Glucose 134 H 139 H Radiology Reviewed by me: Yes Hospitalist ROS - Review of Systems ROS unobtainable: due to endotracheal tube - Medication Medications: Active Medications Generic Name Dose Route Start Last Admin Trade Name Freq PRN Reason Stop Dose Admin Acetaminophen 650 mg 09/06/19 23:13 09/08/19 13:31 Tylenol IN 650 mg Q4H PRN Administration Fever > 101 Albuterol/Ipratropium 3 ml 09/08/19 18:30 09/09/19 10:43 Duoneb NEB 3 ml [id number] CYDNEY Administration Atorvastatin Calcium 80 mg 09/07/19 21:00 09/08/19 21:18 Lipitor PO 80 mg HS CYDNEY Administration Carvedilol 3.125 mg 09/07/19 21:00 09/09/19 08:47 Coreg PO 3.125 mg BID CYDNEY Administration Clopidogrel Bisulfate 75 mg 09/08/19 09:00 09/09/19 08:47 Plavix PO 75 mg DAILY CYDNEY Administration Famotidine 20 mg 09/07/19 09:00 09/09/19 08:47 Pepcid PER TUBE 20 mg BID CYDNEY Administration Cefepime HCl 2 gm/ Sodium 100 mls @ 200 mls/hr 09/08/19 02:00 09/09/19 01:51 Chloride IVPB 100 mls 0200,1400 CYDNEY Administration Mexiletine HCl 150 mg 09/07/19 15:00 09/09/19 08:47 Mexiletine Hcl PO 150 mg TID CYDNEY Administration Modafinil 100 mg 09/09/19 09:00 09/09/19 10:13 Provigil PER TUBE 100 mg DAILY CYDNEY Administration Ranolazine 500 mg 09/07/19 21:00 09/09/19 09:11 Ranexa PO 500 mg BID CYDNEY Administration Scopolamine 1.5 mg 09/08/19 16:30 09/08/19 18:44 Transderm Scop TD 1.5 mg Q3D CYDNEY Administration Sodium Chloride 10 ml 09/07/19 09:00 09/09/19 10:13 Flush - Normal Saline IVF 10 ml Q12HR CYDNEY Administration Warfarin Sodium 4 mg 09/08/19 17:00 09/08/19 21:17 Coumadin PER TUBE 4 mg 1700 CYDNEY Administration - Exam General Appearance: NAD Eye: anicteric sclera ENT: normocephalic atraumatic, no oropharyngeal lesions Neck: supple, symmetric, no lymphadenopathy Heart: no murmur, no gallops, no rubs, irregular Respiratory: CTAB, no wheezes, no rales, no ronchi Gastrointestinal: soft, non-tender, non-distended, no guarding, no rigidity Extremities: no edema Skin: no lesions, no rashes Neurological: cranial nerve grossly intact, no focal deficits Musculoskeletal: generalized weakness Psychiatric: not oriented Hosp A/P (1) Acute respiratory failure Code(s): J96.00 - ACUTE RESPIRATORY FAILURE, UNSP W HYPOXIA OR HYPERCAPNIA Status: Acute (2) Afib Code(s): I48.91 - UNSPECIFIED ATRIAL FIBRILLATION Status: Chronic (3) Pacemaker Code(s): Z95.0 - PRESENCE OF CARDIAC PACEMAKER Status: Chronic (4) AMS (altered mental status) Code(s): R41.82 - ALTERED MENTAL STATUS, UNSPECIFIED Status: Acute (5) Syncope and collapse Code(s): R55 - SYNCOPE AND COLLAPSE Status: Acute (6) CAD (coronary artery disease) Code(s): I25.10 - ATHSCL HEART DISEASE OF [place] CORONARY ARTERY W/O ANG PCTRS Status: Acute (7) CHF (congestive heart failure) Code(s): I50.9 - HEART FAILURE, UNSPECIFIED Status: Acute (8) DM type 2, uncontrolled, with renal complications Code(s): E11.29 - TYPE 2 DIABETES MELLITUS W OTH DIABETIC KIDNEY COMPLICATION; E11.65 - TYPE 2 DIABETES MELLITUS WITH HYPERGLYCEMIA Status: Acute (9) CKD (chronic kidney disease) stage 3, GFR 30-59 ml/min Code(s): N18.3 - CHRONIC KIDNEY DISEASE, STAGE 3 (MODERATE) Status: Acute (10) HTN (hypertension) Code(s): I10 - ESSENTIAL (PRIMARY) HYPERTENSION Status: Acute (11) HLD (hyperlipidemia) Code(s): E78.5 - HYPERLIPIDEMIA, UNSPECIFIED Status: Acute (12) CLAUDE (acute kidney injury) Code(s): N17.9 - ACUTE KIDNEY FAILURE, UNSPECIFIED Status: Acute - Plan Plan: Intensive care unit pulmonology consultation, recommendations appreciated Cardiology consultation, recommendations appreciated vent management, SBT when able, mental status is limiting factor chest x-ray does not demonstrate any focal pneumonia or other acute cardiothoracic process acute respiratory failure secondary to altered mental status, intubated for airway protection pacemaker interrogation MRI the brain cannot be done pacemaker not compatible echocardiogram with EF 10-15% cardiomyopathy regimen as able oral anticoagulation with Coumadin for Afib, though subtherapeutic on admission concern for acute CVA Empiric ABX with cefepime, UA negative, CXR does not demonstrate focal PNA, no obvious cellulitis or skin lesions Extubated 09/08, re intubated in the night on 09/08 blood sugar control with insulin breathing treatments as needed blood pressure control CT scan of the brain on admission does not demonstrate any acute intracranial process
[2019-09-09] MEDS: hydrALAZINE 25 MG TAB PER TUBE SCH ×2 (14:14→21:32)
[2019-09-09] MEDS: Isosorbide Dinitrate 20 MG TAB PER TUBE SCH ×3 (14:52→21:32)
[2019-09-09] MEDS: Warfarin Sodium 2 MG TAB PER TUBE SCH (16:07)
[2019-09-09] MEDS: Atorvastatin Calcium 40 MG TAB PO SCH (21:32)
[2019-09-10] MEDS: Cefepime 2 GM in Sodium Chloride 0.9% 100 ML IVPB SCH ×2 (02:17→15:20)
[2019-09-10 05:27] LABS: #Eosinphils 0.6 thou/uL (0.0-0.7); #Lymphocytes 0.9 thou/uL (1.20-3.40); #Monocytes 0.9 thou/uL (0.11-0.59); %Basophils 0.1 % (0.0-1.0); %Eosinophils 6.3 % (0.0-10.0); %Lymphocytes 9.6 % (21.0-51.0); %Monocytes 9.3 % (0.0-10.0); %Neutrophils 74.7 % (42.0-75.0); Hemoglobin 13.2 g/dL (14.0-18.0); Mean Corpuscular HGB CONC 32.7 g/dL (32.0-36.0); Mean Corpuscular Hemoglobin 31.1 pg (27.0-31.0); Mean Corpuscular Volume 95.2 fL (78.0-98.0); Mean Platelet Volume 8.2 fL (7.4-10.4); Platelet Count 241 thou/uL (130-400); RBC Distribution Width 12.3 % (11.5-14.5); Red Blood Cell (RBC) Count 4.23 mill/uL (4.70-6.10); White Blood Cell (WBC) Count 9.4 thou/uL (4.8-10.8)
[2019-09-10 05:31] LABS: INR-International Normal Ratio 2.3; Prothrombin Time 24.8 SEC (12.0-14.7)
[2019-09-10 05:32] LABS: PTT 51.4 SEC (22.9-36.1)
[2019-09-10 05:51] LABS: Anion Gap 12 mmol/L (10-20); BUN (Urea Nitrogen) 40 mg/dL (8.4-25.7); Calc. Creatinine Clearance 58 mL/min (70-130); Calcium 9.5 mg/dL (7.8-10.44); Carbon Dioxide 26 mmol/L (23-31); Chloride 107 mmol/L (98-107); Estimated GFR-MDRD 36; Glucose 204 mg/dL (80-115); Potassium 4.3 mmol/L (3.5-5.1); Sodium 141 mmol/L (136-145)
[2019-09-10 07:05] LABS: Actual Bicarbonate (HCO3a) 26.5 mEq/L (22-28); Base Excess (BEa) 1.7 mEq/L (-2.0 to +3.0); CO2 Tension 42.2 mmHg (35.0-45.0); Calcium, Ionized 1.19 mmol/L (1.12-1.30); Carboxyhemoglobin (COHb) 1.3 gm% (0.0-3.0); Hemoglobin (Hb) 13.9 g/dL (14.0-18.0); O2 Tension (PaO2) 78.4 mmHg (> 80.0); Potassium - ABG Lab 4.29 mmol/L (3.70-5.30); pH, Arterial 7.42 (7.35-7.45)
[2019-09-10 07:06] LABS: Puncture Site RRA
[2019-09-10] MEDS: hydrALAZINE 25 MG TAB PER TUBE SCH ×3 (08:27→20:13)
[2019-09-10] MEDS: Famotidine 20 MG TAB PER TUBE SCH ×2 (08:27→20:14)
[2019-09-10] MEDS: Clopidogrel Bisulfate 75 MG TAB PO SCH (08:27)
[2019-09-10] MEDS: Mexiletine HCl 150 MG CAP PO SCH ×3 (09:00→20:14)
--- NOTE | 2019-09-10 09:07 | RAD ---
PORTABLE CHEST: HISTORY: Respiratory distress. COMPARISON: Prior day's study. FINDINGS: Heart size is enlarged with an internal defibrillator device present. Endotracheal tube is in satisfa ctory position. Pleural and parenchymal lung changes show some increased opacification to the left ba se which could represent increasing left effusion. IMPRESSION: Increasing parenchymal density in the left base. This could represent pleural or parenchymal lung amari nge. Otherwise stable chest. POS: [facility]
--- NOTE | 2019-09-10 09:47 | PRG ---
DATE OF SERVICE: 09/10/2019 SUBJECTIVE: Stanley Echavarria remains on the vent, intubated. He is on no sedation, but he has remained encephalopathic. OBJECTIVE: VITAL SIGNS: His temperature is 99, pulse 64, blood pressure 138/72, and saturations are 99%. His I's and O's are slightly negative. NEUROLOGIC: He is not opening his eyes, but he does move all 4 extremities. CHEST: Bilateral rhonchi and crackles. CARDIAC: Normal S1, S2. No gallops. ABDOMEN: No masses. LABORATORY DATA: PO2 of 78, pCO2 of on a rate of 16, 50%. Creatinine is 1.85, glucose is 204. H and H are unremarkable. IMPRESSION: Respiratory failure, thalamic stroke, aspiration pneumonia, renal failure, long-term anticoagulation. PLAN: Pulmonary guzman, at this stage, he is not weanable. Until there is improvement in his neurological status. Additionally, he needs to have much improvement in his x-ray. EF is only 15%. It shows large pleural effusion and CHF. Plan continue supportive care. Ordered PT. In the meantime, continue diuretics. This is one-half hour of critical time. Job ID: [id number]
[2019-09-10] MEDS ORDERED: Furosemide 20 MG/2 ML VIAL SLOW IVP SCH (10:15)
[2019-09-10] MEDS: Isosorbide Dinitrate 20 MG TAB PER TUBE SCH ×3 (10:52→20:14)
[2019-09-10] MEDS: Modafinil 100 MG TAB PER TUBE SCH (10:52)
[2019-09-10] MEDS: Carvedilol 3.125 MG TAB PO SCH ×2 (12:16→20:13)
[2019-09-10] MEDS: Furosemide 20 MG/2 ML VIAL SLOW IVP SCH (15:32)
[2019-09-10] MEDS: Warfarin Sodium 2 MG TAB PER TUBE SCH (17:07)
[2019-09-10] MEDS: Atorvastatin Calcium 40 MG TAB PO SCH (20:13)
--- NOTE | 2019-09-10 22:30 | PDOC.HOSPP ---
- Subjective Encounter Date: 09/10/19 Encounter Time: 10:15 non-verbal Subjective: Patient seen and examined for resp failure. Remains on Vent. No overnight events - Objective Vital Signs & Weight: Vital Signs (12 hours) Temp Pulse Pulse Pulse Resp BP BP 09/10/19 22:00 16 09/10/19 20:13 67 136/72 09/10/19 20:00 17 09/10/19 19:00 99.6 F 09/10/19 18:10 67 136/72 09/10/19 18:00 16 09/10/19 16:11 69 65 133/74 09/10/19 16:00 97.0 F L 18 09/10/19 15:39 63 140/73 09/10/19 15:38 65 24 H 09/10/19 14:00 19 09/10/19 12:00 100.1 F H 14 09/10/19 10:38 64 144/66 H 09/10/19 10:36 67 18 BP Pulse Ox Pulse Ox Pulse Ox 09/10/19 22:00 09/10/19 20:13 09/10/19 20:00 09/10/19 19:00 09/10/19 18:10 09/10/19 18:00 09/10/19 16:11 139/71 95 94 L 09/10/19 16:00 09/10/19 15:39 09/10/19 15:38 96 09/10/19 14:00 09/10/19 12:00 09/10/19 10:38 09/10/19 10:36 97 Weight Admit Weight 238 lb 15.697 oz Weight 238 lb 15.697 oz Most Recent Monitor Data Heart Rate from ECG 66 NIBP 130/70 NIBP BP-Mean 90 Respiration from ECG 17 SpO2 98 I&O: 09/09/19 09/10/19 09/11/19 06:59 06:59 06:59 Intake Total 636 1336 1089 Output Total 7446 381 4201 Balance -913 537 -311 Result Diagrams: 09/10/19 04:50 09/10/19 04:50 Additional Labs: Accuchecks 09/10/19 15:58 POC Glucose 181 H Radiology Reviewed by me: Yes (CXR - ?infiltrate) EKG Reviewed by me: Yes (Tele paced) Hospitalist ROS - Review of Systems ROS unobtainable: due to mental status - Medication Medications: Active Medications Generic Name Dose Route Start Last Admin Trade Name Freq PRN Reason Stop Dose Admin Acetaminophen 650 mg 09/06/19 23:13 09/08/19 13:31 Tylenol NE 650 mg Q4H PRN Administration Fever > 101 Albuterol/Ipratropium 3 ml 09/08/19 18:30 09/10/19 18:07 Duoneb NEB 3 ml [id number] CYDNEY Administration Atorvastatin Calcium 80 mg 09/07/19 21:00 09/10/19 20:13 Lipitor PO 80 mg HS CYDNEY Administration Carvedilol 3.125 mg 09/07/19 21:00 09/10/19 20:13 Coreg PO 3.125 mg BID CYDNEY Administration Clopidogrel Bisulfate 75 mg 09/08/19 09:00 09/10/19 08:27 Plavix PO 75 mg DAILY CYDNEY Administration Famotidine 20 mg 09/07/19 09:00 09/10/19 20:14 Pepcid PER TUBE 20 mg BID CYDNEY Administration Furosemide 20 mg 09/10/19 14:00 09/10/19 15:32 Lasix SLOW IVP 20 mg 0600,1400 CYDNEY Administration Hydralazine HCl 25 mg 09/09/19 15:00 09/10/19 20:13 Apresoline PER TUBE 25 mg TID CYDNEY Administration Cefepime HCl 2 gm/ Sodium 100 mls @ 200 mls/hr 09/08/19 02:00 09/10/19 15:20 Chloride IVPB 100 mls 0200,1400 CYDNEY Administration Isosorbide Dinitrate 20 mg 09/09/19 15:00 09/10/19 20:14 Isordil PER TUBE 20 mg TID CYDNEY Administration Mexiletine HCl 150 mg 09/07/19 15:00 09/10/19 20:14 Mexiletine Hcl PO 150 mg TID CYDNEY Administration Modafinil 100 mg 09/09/19 09:00 09/10/19 10:52 Provigil PER TUBE 100 mg DAILY CYDNEY Administration Ranolazine 500 mg 09/07/19 21:00 09/10/19 20:15 Ranexa PO Not Given BID CYDNEY Scopolamine 1.5 mg 09/08/19 16:30 09/08/19 18:44 Transderm Scop TD 1.5 mg Q3D CYDNEY Administration Sodium Chloride 10 ml 09/07/19 09:00 09/10/19 20:15 Flush - Normal Saline IVF 10 ml Q12HR CYDNEY Administration Warfarin Sodium 4 mg 09/08/19 17:00 09/10/19 17:07 Coumadin PER TUBE 4 mg 1700 CYDNEY Administration - Exam General Appearance: NAD (on VEnt) Heart: RRR, no gallops Respiratory: no rales, rhonchi Gastrointestinal: soft, non-distended Hosp A/P - Plan Acute hypoxic Resp failure - failed extubation Encephalopathy suspected due to Left Thalamic CVA Aspiration Pneumonia Chronic systolic/Diastolic HF s/p AICD Chr Afib - on anticoag - Subtherapeutic INR on admission Obesity BMI 30.7 Type 2 VA CLAUDE on CKD 2 DM2 HTN Elevated CK on admission CAD PLAN: Check CK in AM Cont Vent support Cont Warfarin/Plavix (home meds) Cont Atbx ABG in AM AM labs Cont Coreg/Nitates/Hydralazine/Ranexa
[2019-09-11] MEDS: Cefepime 2 GM in Sodium Chloride 0.9% 100 ML IVPB SCH ×2 (02:50→15:15)
[2019-09-11] MEDS: Furosemide 20 MG/2 ML VIAL SLOW IVP SCH (05:20)
[2019-09-11 05:38] LABS: PTT 46.1 SEC (22.9-36.1); Prothrombin Time 22.7 SEC (12.0-14.7)
[2019-09-11 05:39] LABS: #Eosinphils 0.5 thou/uL (0.0-0.7); #Lymphocytes 0.8 thou/uL (1.20-3.40); %Basophils 0.4 % (0.0-1.0); %Eosinophils 6.2 % (0.0-10.0); %Lymphocytes 9.6 % (21.0-51.0); %Monocytes 11.6 % (0.0-10.0); %Neutrophils 72.2 % (42.0-75.0); Hemoglobin 13.1 g/dL (14.0-18.0); Mean Corpuscular HGB CONC 32.8 g/dL (32.0-36.0); Mean Corpuscular Hemoglobin 30.9 pg (27.0-31.0); Mean Corpuscular Volume 94.4 fL (78.0-98.0); Mean Platelet Volume 8.1 fL (7.4-10.4); Platelet Count 255 thou/uL (130-400); RBC Distribution Width 12.3 % (11.5-14.5); Red Blood Cell (RBC) Count 4.23 mill/uL (4.70-6.10); White Blood Cell (WBC) Count 8.2 thou/uL (4.8-10.8)
[2019-09-11 05:56] LABS: Anion Gap 15 mmol/L (10-20); BUN (Urea Nitrogen) 43 mg/dL (8.4-25.7); CK (CPK) 284 U/L (30-200); Calc. Creatinine Clearance 65 mL/min (70-130); Calcium 9.5 mg/dL (7.8-10.44); Carbon Dioxide 26 mmol/L (23-31); Chloride 107 mmol/L (98-107); Estimated GFR-MDRD 42; Glucose 225 mg/dL (80-115); Magnesium 2.6 mg/dL (1.6-2.6); Potassium 4.2 mmol/L (3.5-5.1); Sodium 144 mmol/L (136-145)
[2019-09-11] MEDS: HumaLOG 300 UNITS/3 ML VIAL SC PRN ×4 (06:18→21:33)
[2019-09-11 06:56] LABS: Actual Bicarbonate (HCO3a) 26.6 mEq/L (22-28); Base Excess (BEa) 2.3 mEq/L (-2.0 to +3.0); CO2 Tension 40.6 mmHg (35.0-45.0); Calcium, Ionized 1.22 mmol/L (1.12-1.30); Carboxyhemoglobin (COHb) 1.2 gm% (0.0-3.0); Hemoglobin (Hb) 13.4 g/dL (14.0-18.0); O2 Tension (PaO2) 70.3 mmHg (> 80.0); Potassium - ABG Lab 4.02 mmol/L (3.70-5.30); pH, Arterial 7.44 (7.35-7.45)
[2019-09-11 06:58] LABS: Puncture Site RRA
[2019-09-11] MEDS ORDERED: Furosemide 40 MG/4 ML VIAL SLOW IVP SCH (08:45)
[2019-09-11] MEDS ORDERED: Spironolactone 25 MG TAB PO SCH (09:00)
--- NOTE | 2019-09-11 09:01 | RAD ---
PORTABLE CHEST: COMPARISON: 09/10/2019 study. HISTORY: Pneumonia. FINDINGS: Heart size is enlarged with postop sternotomy change. Endotracheal tube is in place. Pleural and pa renchymal lung changes appear stable. IMPRESSION: Stable exam. POS: [facility]
[2019-09-11] MEDS: Carvedilol 3.125 MG TAB PO SCH ×2 (09:11→21:31)
[2019-09-11] MEDS: Famotidine 20 MG TAB PER TUBE SCH ×2 (09:11→21:31)
[2019-09-11] MEDS: hydrALAZINE 25 MG TAB PER TUBE SCH ×3 (09:11→21:31)
[2019-09-11] MEDS: Clopidogrel Bisulfate 75 MG TAB PO SCH (09:11)
[2019-09-11] MEDS: Mexiletine HCl 150 MG CAP PO SCH ×3 (09:12→21:32)
[2019-09-11] MEDS: Isosorbide Dinitrate 20 MG TAB PER TUBE SCH ×3 (09:19→21:31)
--- NOTE | 2019-09-11 09:30 | PRG ---
DATE OF SERVICE: 09/11/2019 SUBJECTIVE: This morning, he is little bit more responsive, still no sedation. OBJECTIVE: VITAL SIGNS: Blood pressure 134/74, pulse rate is 18, saturations are 98%. His I's and O's, 1694 in and 2015 out. CHEST: Bilateral rhonchi. CARDIAC: Normal S1, S2. No gallop. ABDOMEN: No mass. LABORATORY DATA: White count 8,000. H and H, unremarkable. Lytes are normal. INR is 2. Creatinine is 1.65. PO2 is 70, pCO2 of 40, pH of 7.44. IMPRESSION: Respiratory failure, congestive heart failure, pleural effusion, encephalopathy, renal failure. PLAN: CPAP today. Continue antibiotics and supportive care. Consider extubation in the next 24 to 48 hours if he continues to improve. One-half hour of critical time. Job ID: [id number]
[2019-09-11] MEDS: Modafinil 100 MG TAB PER TUBE SCH (11:38)
[2019-09-11] MEDS: Furosemide 40 MG/4 ML VIAL SLOW IVP SCH (15:16)
[2019-09-11] MEDS: Scopolamine 1.5 mg/72 hour Patch TD SCH (15:35)
[2019-09-11] MEDS: Warfarin Sodium 2 MG TAB PER TUBE SCH (17:24)
[2019-09-11] MEDS: Atorvastatin Calcium 40 MG TAB PO SCH (21:31)
--- NOTE | 2019-09-11 22:03 | PDOC.HOSPP ---
- Subjective Encounter Date: 09/11/19 Encounter Time: 11:00 non-verbal Subjective: Patient seen and examined for Resp failure. Remains on Vent. Not on sedation. No overnight events - Objective Vital Signs & Weight: Vital Signs (12 hours) Temp Pulse Pulse Pulse Resp BP BP 09/11/19 21:59 76 114/75 09/11/19 21:31 79 114/75 09/11/19 20:00 99.4 F 18 09/11/19 19:36 09/11/19 18:19 79 93/59 L 09/11/19 18:00 99.1 F 21 H 09/11/19 16:00 11 L 09/11/19 15:00 100.1 F H 09/11/19 14:31 66 133/74 09/11/19 14:30 66 15 09/11/19 14:00 11 L 09/11/19 12:00 24 H 09/11/19 11:46 09/11/19 11:07 74 80 118/74 09/11/19 11:00 99.6 F 09/11/19 10:32 75 125/67 09/11/19 10:31 76 17 BP Pulse Ox Pulse Ox Pulse Ox 09/11/19 21:59 09/11/19 21:31 09/11/19 20:00 09/11/19 19:36 97 09/11/19 18:19 09/11/19 18:00 09/11/19 16:00 09/11/19 15:00 09/11/19 14:31 09/11/19 14:30 98 09/11/19 14:00 09/11/19 12:00 09/11/19 11:46 99 09/11/19 11:07 116/69 98 98 09/11/19 11:00 09/11/19 10:32 09/11/19 10:31 99 Weight Admit Weight 238 lb 15.697 oz Weight 238 lb 15.697 oz Most Recent Monitor Data Heart Rate from ECG 71 NIBP 114/75 NIBP BP-Mean 88 Respiration from ECG 24 SpO2 97 I&O: 09/10/19 09/11/19 09/12/19 06:59 06:59 06:59 Intake Total 5763 7921 940 Output Total 413 8044 5022 Balance 537 -321 -635 Result Diagrams: 09/11/19 05:19 09/11/19 05:19 Additional Labs: Accuchecks 09/11/19 09/11/19 09/11/19 21:33 16:20 11:35 POC Glucose 177 H 190 H 201 H 09/11/19 00:13 POC Glucose 182 H EKG Reviewed by me: Yes (Tele Paced) Hospitalist ROS - Review of Systems ROS unobtainable: due to endotracheal tube - Medication Medications: Active Medications Generic Name Dose Route Start Last Admin Trade Name Freq PRN Reason Stop Dose Admin Acetaminophen 650 mg 09/06/19 23:13 09/08/19 13:31 Tylenol PA 650 mg Q4H PRN Administration Fever > 101 Albuterol/Ipratropium 3 ml 09/08/19 18:30 09/11/19 21:58 Duoneb NEB 3 ml [id number] CYDNEY Administration Atorvastatin Calcium 80 mg 09/07/19 21:00 09/11/19 21:31 Lipitor PO 80 mg HS CYDNEY Administration Carvedilol 3.125 mg 09/07/19 21:00 09/11/19 21:31 Coreg PO 3.125 mg BID CDYNEY Administration Clopidogrel Bisulfate 75 mg 09/08/19 09:00 09/11/19 09:11 Plavix PO 75 mg DAILY CYDNEY Administration Famotidine 20 mg 09/07/19 09:00 09/11/19 21:31 Pepcid PER TUBE 20 mg BID CYDNEY Administration Furosemide 40 mg 09/11/19 14:00 09/11/19 15:16 Lasix SLOW IVP 40 mg 0600,1400 CYDNEY Administration Hydralazine HCl 25 mg 09/09/19 15:00 09/11/19 21:31 Apresoline PER TUBE 25 mg TID CYDNEY Administration Cefepime HCl 2 gm/ Sodium 100 mls @ 200 mls/hr 09/08/19 02:00 09/11/19 15:15 Chloride IVPB 100 mls 0200,1400 CYDNEY Administration Insulin Human Lispro 0 units 09/07/19 00:12 09/11/19 21:33 Humalog SC 2 units .MILD SLIDING SCALE PRN Administration Mild Correctional Scale Isosorbide Dinitrate 20 mg 09/09/19 15:00 09/11/19 21:31 Isordil PER TUBE 20 mg TID CYDNEY Administration Mexiletine HCl 150 mg 09/07/19 15:00 09/11/19 21:32 Mexiletine Hcl PO 150 mg TID CYDNEY Administration Modafinil 100 mg 09/09/19 09:00 09/11/19 11:38 Provigil PER TUBE 100 mg DAILY CYDNEY Administration Ranolazine 500 mg 09/07/19 21:00 09/11/19 21:31 Ranexa PO 500 mg BID CYDNEY Administration Scopolamine 1.5 mg 09/08/19 16:30 09/11/19 15:35 Transderm Scop TD 1.5 mg Q3D CYDNEY Administration Sodium Chloride 10 ml 09/07/19 09:00 09/11/19 21:32 Flush - Normal Saline IVF 10 ml Q12HR CYDNEY Administration Warfarin Sodium 4 mg 09/08/19 17:00 09/11/19 17:24 Coumadin PER TUBE 4 mg 1700 CYDNEY Administration - Exam General Appearance: NAD General - other findings: on Vent/OG feeds Neck: supple Heart: RRR, no gallops Respiratory: no wheezes, rhonchi Gastrointestinal: soft, normal bowel sounds Extremities: no edema Hosp A/P - Plan DVT proph w/SCDs Acute hypoxic Resp failure - failed extubation Encephalopathy suspected due to Left Thalamic CVA Aspiration Pneumonia Chronic systolic/Diastolic HF s/p AICD Chr Afib - on anticoag - Subtherapeutic INR on admission Obesity BMI 30.7 CAD Type 2 MD CLAUDE on CKD 2 DM2 HTN Elevated CK on admission - improving PLAN: Cont Cefepime for Aspiration Cont Coreg/Nitates/Hydralazine/Ranexa Cont Vent support Cont Warfarin/Plavix (home meds) AM labs
[2019-09-11] MEDS: Refresh Lacri-lube Opth Oint 7 GM TUBE EA EYE SCH (22:24)
[2019-09-12] MEDS: Cefepime 2 GM in Sodium Chloride 0.9% 100 ML IVPB SCH ×2 (01:28→13:34)
[2019-09-12 03:22] LABS: #Eosinphils 0.2 thou/uL (0.0-0.7); #Lymphocytes 0.9 thou/uL (1.20-3.40); #Monocytes 0.8 thou/uL (0.11-0.59); #Neutrophils 6.8 thou/uL (1.40-6.50); %Basophils 0.5 % (0.0-1.0); %Eosinophils 2.6 % (0.0-10.0); %Lymphocytes 10.4 % (21.0-51.0); %Monocytes 9.1 % (0.0-10.0); %Neutrophils 77.4 % (42.0-75.0); Hemoglobin 13.7 g/dL (14.0-18.0); Mean Corpuscular HGB CONC 33.3 g/dL (32.0-36.0); Mean Corpuscular Hemoglobin 31.7 pg (27.0-31.0); Mean Corpuscular Volume 95.2 fL (78.0-98.0); Mean Platelet Volume 8.2 fL (7.4-10.4); Platelet Count 273 thou/uL (130-400); RBC Distribution Width 12.5 % (11.5-14.5); Red Blood Cell (RBC) Count 4.31 mill/uL (4.70-6.10); White Blood Cell (WBC) Count 8.8 thou/uL (4.8-10.8)
[2019-09-12 03:28] LABS: INR-International Normal Ratio 1.8; Prothrombin Time 20.5 SEC (12.0-14.7)
[2019-09-12 03:29] LABS: PTT 36.7 SEC (22.9-36.1)
[2019-09-12 03:47] LABS: Anion Gap 17 mmol/L (10-20); BUN (Urea Nitrogen) 46 mg/dL (8.4-25.7); Calc. Creatinine Clearance 64 mL/min (70-130); Calcium 9.4 mg/dL (7.8-10.44); Carbon Dioxide 22 mmol/L (23-31); Chloride 107 mmol/L (98-107); Estimated GFR-MDRD 41; Glucose 215 mg/dL (80-115); Potassium 4.3 mmol/L (3.5-5.1); Sodium 142 mmol/L (136-145)
[2019-09-12] MEDS: Furosemide 40 MG/4 ML VIAL SLOW IVP SCH ×2 (05:50→13:34)
[2019-09-12] MEDS: Acetaminophen 650 MG/20.3 ML UDCUP PER TUBE PRN ×2 (06:05→20:49)
[2019-09-12] MEDS: HumaLOG 300 UNITS/3 ML VIAL SC PRN ×4 (06:24→20:43)
[2019-09-12 06:44] LABS: Actual Bicarbonate (HCO3a) 25.1 mEq/L (22-28); Base Excess (BEa) 1.7 mEq/L (-2.0 to +3.0); CO2 Tension 35.7 mmHg (35.0-45.0); Calcium, Ionized 1.19 mmol/L (1.12-1.30); Hemoglobin (Hb) 13.9 g/dL (14.0-18.0); Potassium - ABG Lab 4.09 mmol/L (3.70-5.30); pH, Arterial 7.47 (7.35-7.45)
[2019-09-12 06:47] LABS: ALV-art Gradient 163.575 (0-20); Puncture Site RRA
--- NOTE | 2019-09-12 08:01 | RAD ---
EXAM: CHEST ONE VIEW HISTORY: Pneumonia. Follow-up evaluation. COMPARISON: 09/11/2019. FINDINGS: Multilead left subclavian AICD device remains in place. Endotracheal tube and nasogastric tubes remai n unchanged in position. Bibasilar pleural and parenchymal lung changes are again seen and are stable when compared to the prior study. Findings may relate to bilateral pleural effusions and atele ctasis. Superimposed infiltrate/pneumonia cannot be entirely excluded. The cardiac silhouette is mildly enlarged. No interval change from prior study. IMPRESSION: Stable chest.
[2019-09-12] MEDS: Mexiletine HCl 150 MG CAP PO SCH ×3 (08:18→20:42)
[2019-09-12] MEDS: Modafinil 100 MG TAB PER TUBE SCH (08:18)
[2019-09-12] MEDS: hydrALAZINE 25 MG TAB PER TUBE SCH ×3 (08:19→20:37)
[2019-09-12] MEDS: Spironolactone 25 MG TAB PO SCH (08:19)
[2019-09-12] MEDS: Famotidine 20 MG TAB PER TUBE SCH ×2 (08:20→20:37)
[2019-09-12] MEDS: Carvedilol 3.125 MG TAB PO SCH ×2 (08:20→20:37)
[2019-09-12] MEDS: Clopidogrel Bisulfate 75 MG TAB PO SCH (08:20)
[2019-09-12] MEDS: Isosorbide Dinitrate 20 MG TAB PER TUBE SCH ×3 (08:20→20:38)
[2019-09-12] MEDS: Refresh Lacri-lube Opth Oint 7 GM TUBE EA EYE SCH ×2 (08:21→20:36)
--- NOTE | 2019-09-12 09:10 | PRG ---
DATE OF SERVICE: 09/12/2019 SUBJECTIVE: Stanley Echavarria this morning still remains encephalopathic. Nurses tell me he was more responsive earlier. OBJECTIVE: VITAL SIGNS: Temperature 96, blood pressure 126/70, pulse 71, and respiratory rate 18. CHEST: Decreased breath sounds. Rhonchi. CARDIAC: Normal S1 and S2. No gallops. ABDOMEN: No mass. LABORATORY DATA: His white count 8000, H and H 13 and 41. PO2 is 77, pCO2 of 35, pH of 7.47 on a CPAP of 40%, PEEP of 5. Creatinine 1.6. X-ray shows bilateral pleural effusion. ASSESSMENT: 1. Thalamic stroke. 2. Encephalopathy. 3. Morbid obesity. 4. Congestive heart failure. 5. Cardiomyopathy. 6. Azotemia. The patient is not weanable at this stage until he is more responsive. He was started on Provigil 100 mg a daymay consider repeating a CT of his head tomorrow if remains responsive. He is still on Coumadin and diuretics. One-half hour of critical time. Job ID: [id number] MTDD
[2019-09-12] MEDS: Warfarin Sodium 5 MG TAB PER TUBE SCH (16:01)
--- NOTE | 2019-09-12 20:24 | CON ---
DATE OF CONSULTATION: 09/12/2019 CONSULTING PHYSICIAN: Hospitalist Service. IMPRESSION: Infarct of the midbrain and left thalamus resulting in secondary coma with possible locked-in state. PLAN: The patient's prognosis is quite poor. Therefore, I would suggest possible hospice and comfort measures. HISTORY OF PRESENT ILLNESS: Mr. Echavarria is a 69-year-old inmate with a past history hypertension, atrial fibrillation, heart failure, anemia, prostate cancer, coronary artery disease with a defibrillator in place, as well as diabetes and chronic kidney disease. He had alteration of mental status. Initial CT did not show anything. Followup CT reveals evidence of ischemic injury in the midbrain and left thalamus. The patient is intubated and relatively unresponsive. PAST MEDICAL HISTORY: As listed above. ALLERGIES: NONE REPORTED. SOCIAL HISTORY: He was an inmate. FAMILY HISTORY: Unknown. REVIEW OF SYSTEMS: Not obtainable. PHYSICAL EXAMINATION: VITAL SIGNS: Have been stable. He is afebrile. HEENT: Pupils are equal and his eyes are dysconjugate. Doll eye maneuver is not intact. Corneal responses are intact. He has a gag response. He has wincing facial response to painful stimulation. He had minimal spontaneous movement of the extremities. No abnormal movements were seen. LABORATORY DATA: EKG shows a sinus rhythm. SUMMARY: This is a 69-year-old gentleman who suffered a severe infarct involving the upper brain stem. The prognosis for a functional recovery is little to none. He will likely require feeding tubes and tracheostomy. His next of kin is trying to be contacted. We will make further plans based on wishes of the family if we can identify any. Job ID: [id number]
[2019-09-12] MEDS: Atorvastatin Calcium 40 MG TAB PO SCH (20:36)
[2019-09-13] MEDS: Cefepime 2 GM in Sodium Chloride 0.9% 100 ML IVPB SCH ×2 (02:00→14:42)
[2019-09-13] MEDS: HumaLOG 300 UNITS/3 ML VIAL SC PRN ×4 (03:52→21:34)
[2019-09-13 06:10] LABS: #Basophils 0.1 thou/uL (0.0-0.2); #Lymphocytes 1.3 thou/uL (1.20-3.40); #Monocytes 1.3 thou/uL (0.11-0.59); #Neutrophils 7.2 thou/uL (1.40-6.50); %Basophils 0.5 % (0.0-1.0); %Eosinophils 0.5 % (0.0-10.0); %Lymphocytes 12.7 % (21.0-51.0); %Monocytes 13.2 % (0.0-10.0); %Neutrophils 73.1 % (42.0-75.0); Hemoglobin 13.1 g/dL (14.0-18.0); Mean Corpuscular HGB CONC 31.2 g/dL (32.0-36.0); Mean Corpuscular Hemoglobin 29.8 pg (27.0-31.0); Mean Corpuscular Volume 95.5 fL (78.0-98.0); Mean Platelet Volume 8.9 fL (7.4-10.4); Platelet Count 295 thou/uL (130-400); RBC Distribution Width 12.5 % (11.5-14.5); White Blood Cell (WBC) Count 9.9 thou/uL (4.8-10.8)
[2019-09-13 06:13] LABS: INR-International Normal Ratio 2.6; PTT 45.2 SEC (22.9-36.1); Prothrombin Time 27.4 SEC (12.0-14.7)
[2019-09-13 06:34] LABS: Anion Gap 16 mmol/L (10-20); BUN (Urea Nitrogen) 74 mg/dL (8.4-25.7); Calc. Creatinine Clearance 49 mL/min (70-130); Calcium 9.4 mg/dL (7.8-10.44); Carbon Dioxide 27 mmol/L (23-31); Chloride 107 mmol/L (98-107); Estimated GFR-MDRD 32; Glucose 332 mg/dL (80-115); Potassium 4.1 mmol/L (3.5-5.1); Sodium 146 mmol/L (136-145)
[2019-09-13] MEDS: Furosemide 40 MG/4 ML VIAL SLOW IVP SCH ×2 (06:34→14:43)
--- NOTE | 2019-09-13 08:38 | RAD ---
PORTABLE CHEST: HISTORY: Pneumonia. COMPARISON: Prior day's study. FINDINGS: The patient is rotated on this exam. Heart size is enlarged. There are postop sternotomy changes. Endotracheal tube and NG tubes are in satisfactory position. Some bibasilar parenchymal lung changes are felt to be stable. IMPRESSION: Essentially stable exam. POS: [facility]
--- NOTE | 2019-09-13 08:40 | PRG ---
DATE OF SERVICE: 09/13/2019 SUBJECTIVE: This morning, the patient is pretty much still unresponsive. OBJECTIVE: VITAL SIGNS: He had a backup rate of 8, pulse 70, blood pressure 110/59, saturations 100%, respirations 18. I's and O's consistently negative. CHEST: Decreased breath sounds. No wheezing. CARDIAC: Normal S1, S2. No gallops. ABDOMEN: No masses. LABORATORY DATA: BUN and creatinine are elevated at 74 and 2.8. IMAGING STUDIES: X-ray shows otherwise no acute infiltrates. His diuretics were increased, probably accounting for his worsening renal failure. He was seen by Neurology yesterday. PROGNOSIS: brainstem infarct. IMPRESSION: Thalamic brainstem infarct, encephalopathy, respiratory failure, congestive heart failure. PLAN: He is not weanable. He is going to need a trach and a PEG. He is discussed with family as they arrive. One-half hour of critical time. Job ID: [id number]
--- NOTE | 2019-09-13 08:57 | PDOC.HOSPP ---
- Subjective Encounter Date: 09/12/19 Encounter Time: 09:30 non-verbal Subjective: Patient seen and examined for Resp failure/Encephalopathy. Ns. No new complaints. No overnight events - Objective Vital Signs & Weight: Vital Signs (12 hours) Temp Pulse Resp BP Pulse Ox 09/13/19 06:41 70 110/59 L 09/13/19 06:40 71 10 L 97 09/13/19 06:00 12 09/13/19 04:00 99.5 F 17 09/13/19 02:10 88 09/13/19 02:00 13 09/13/19 01:39 77 12 97 09/13/19 00:00 100.1 F H 10 L 09/12/19 22:00 12 09/12/19 21:46 90 09/12/19 21:45 88 14 95 Weight Admit Weight 238 lb 15.697 oz Weight 226 lb 6.636 oz Most Recent Monitor Data Heart Rate from ECG 71 NIBP 110/59 NIBP BP-Mean 76 Respiration from ECG 12 SpO2 95 I&O: 09/12/19 09/13/19 09/14/19 06:59 06:59 06:59 Intake Total 1557 2111 Output Total 2090 2370 Balance -533 -259 Result Diagrams: 09/13/19 05:59 09/13/19 05:59 Additional Labs: Accuchecks 09/13/19 09/12/19 09/12/19 03:49 20:27 17:48 POC Glucose 264 H 224 H 251 H 09/12/19 11:43 POC Glucose 250 H EKG Reviewed by me: Yes (Tele paced) Hospitalist ROS - Review of Systems ROS unobtainable: due to mental status - Medication Medications: Active Medications Generic Name Dose Route Start Last Admin Trade Name Freq PRN Reason Stop Dose Admin Acetaminophen 650 mg 09/06/19 23:13 09/08/19 13:31 Tylenol [place] 650 mg Q4H PRN Administration Fever > 101 Acetaminophen 650 mg 09/11/19 18:19 09/12/19 20:49 Tylenol Elixir PER TUBE 650 mg Q4H PRN Administration FEVER > 101 Albuterol/Ipratropium 3 ml 09/08/19 18:30 09/13/19 06:40 Duoneb NEB 3 ml [id number] [facility] Administration Atorvastatin Calcium 80 mg 09/07/19 21:00 09/12/19 20:36 Lipitor PO 80 mg HS [facility] Administration Carvedilol 3.125 mg 09/07/19 21:00 09/12/19 20:37 Coreg PO 3.125 mg BID [facility] Administration Clopidogrel Bisulfate 75 mg 09/08/19 09:00 09/12/19 08:20 Plavix PO 75 mg DAILY [facility] Administration Famotidine 20 mg 09/07/19 09:00 09/12/19 20:37 Pepcid PER TUBE 20 mg BID [facility] Administration Furosemide 40 mg 09/11/19 14:00 09/13/19 06:34 Lasix SLOW IVP 40 mg 0600,1400 [facility] Administration Hydralazine HCl 25 mg 09/09/19 15:00 09/12/19 20:37 Apresoline PER TUBE 25 mg TID [facility] Administration Cefepime HCl 2 gm/ Sodium 100 mls @ 200 mls/hr 09/08/19 02:00 09/13/19 02:00 Chloride IVPB 100 mls 0200,1400 [facility] Administration Dexmedetomidine HCl 200 mcg/ 50 mls @ 0 mls/hr 09/12/19 19:30 09/12/19 20:12 Sodium Chloride IVPB 50 mls INF [facility] Administration Protocol Titrate Insulin Human Lispro 0 units 09/07/19 00:12 09/13/19 03:52 Humalog SC 4 units .MILD SLIDING SCALE PRN Administration Mild Correctional Scale Isosorbide Dinitrate 20 mg 09/09/19 15:00 09/12/19 20:38 Isordil PER TUBE 20 mg TID [facility] Administration Mexiletine HCl 150 mg 09/07/19 15:00 09/12/19 20:42 Mexiletine Hcl PO 150 mg TID [facility] Administration Mineral Oil/White Petrolatum 7 gm 09/11/19 21:00 09/12/19 20:36 Lacri-Lube Opth 7 Gm Ointment EA EYE 09/15/19 09:01 7 gm BID [facility] Administration Modafinil 100 mg 09/09/19 09:00 09/12/19 08:18 Provigil PER TUBE 100 mg DAILY [facility] Administration Ranolazine 500 mg 09/07/19 21:00 09/12/19 20:49 Ranexa PO Not Given BID [facility] Scopolamine 1.5 mg 09/08/19 16:30 09/11/19 15:35 Transderm Scop TD 1.5 mg Q3D [facility] Administration Sodium Chloride 10 ml 09/07/19 09:00 09/12/19 20:35 Flush - Normal Saline IVF 10 ml Q12HR [facility] Administration Sodium Chloride 10 ml 09/07/19 07:55 09/12/19 13:34 Flush - Normal Saline IVF 10 ml PRN PRN Administration Saline Flush Spironolactone 25 mg 09/12/19 08:00 09/12/19 08:19 Aldactone PO 25 mg QAM-WM [facility] Administration Warfarin Sodium 5 mg 09/12/19 17:00 09/12/19 16:01 Coumadin PER TUBE 5 mg 1700 [facility] Administration - Exam General Appearance: NAD General - other findings: on Vent/OG feeds Heart: RRR, no gallops Respiratory: CTAB, no rales Gastrointestinal: soft, normal bowel sounds Extremities: no edema Hosp A/P - Plan Acute hypoxic Resp failure - failed extubation 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
[2019-09-13] MEDS: Refresh Lacri-lube Opth Oint 7 GM TUBE EA EYE SCH ×2 (11:05→21:29)
[2019-09-13] MEDS: Mexiletine HCl 150 MG CAP PO SCH ×3 (11:07→21:30)
[2019-09-13] MEDS: hydrALAZINE 25 MG TAB PER TUBE SCH ×2 (11:07→14:43)
[2019-09-13] MEDS: Carvedilol 3.125 MG TAB PO SCH ×2 (11:07→21:30)
[2019-09-13] MEDS: Famotidine 20 MG TAB PER TUBE SCH (11:08)
[2019-09-13] MEDS: Clopidogrel Bisulfate 75 MG TAB PO SCH (11:09)
[2019-09-13] MEDS: Isosorbide Dinitrate 20 MG TAB PER TUBE SCH ×2 (11:09→14:43)
[2019-09-13] MEDS: Spironolactone 25 MG TAB PO SCH (11:09)
[2019-09-13] MEDS: Modafinil 100 MG TAB PER TUBE SCH (11:10)
[2019-09-13 14:25] VITALS: BMI 29.0
--- NOTE | 2019-09-13 16:16 | PDOC.CPN ---
- Subjective Date: 09/13/19 Time: 16:14 Interval history: No new issues. - Review of Systems ROS unobtainable: due to endotracheal tube - Objective Allergies/Adverse Reactions: Allergies Allergy/AdvReac Type Severity Reaction Status Date / Time No Known Allergies Allergy Verified 09/07/19 05:38 Visit Medications: Current Medications Acetaminophen (Tylenol) 650 mg [place] Q4H PRN PRN Reason: Fever > 101 Last Admin: 09/08/19 13:31 Dose: 650 mg Acetaminophen (Tylenol Elixir) 650 mg PER TUBE Q4H PRN PRN Reason: FEVER > 101 Last Admin: 09/12/19 20:49 Dose: 650 mg Albuterol/Ipratropium (Duoneb) 3 ml NEB [id number] [facility] Last Admin: 09/13/19 14:27 Dose: 3 ml Atorvastatin Calcium (Lipitor) 80 mg PO HS [facility] Last Admin: 09/12/19 20:36 Dose: 80 mg Carvedilol (Coreg) 3.125 mg PO BID [facility] Last Admin: 09/13/19 11:07 Dose: 3.125 mg Clopidogrel Bisulfate (Plavix) 75 mg PO DAILY [facility] Last Admin: 09/13/19 11:09 Dose: 75 mg Dextrose/Water (Dextrose 50%) 25 gm SLOW IVP PRN PRN PRN Reason: Hypoglycemia Famotidine (Pepcid) 20 mg PER TUBE DAILY [facility] Furosemide (Lasix) 40 mg SLOW IVP 0600,1400 [facility] Last Admin: 09/13/19 14:43 Dose: 40 mg Glucagon (Glucagon) 1 mg IM PRN PRN PRN Reason: Hypoglycemia Hydralazine HCl (Apresoline) 10 mg SLOW IVP Q4H PRN PRN Reason: SBP > 180 and HR < 70 Hydralazine HCl (Apresoline) 25 mg PER TUBE TID [facility] Last Admin: 09/13/19 14:43 Dose: 25 mg Potassium Chloride 40 meq/ (Sodium Chloride) 270 mls @ 135 mls/hr IVPB ASDIR PRN PRN Reason: FOR SERUM K+ 2.5 - 3.5 Potassium Chloride 40 meq/ (Device) 100 mls @ 50 mls/hr IVPB ASDIR PRN PRN Reason: FOR SERUM K+ 2.5 - 3.5 Magnesium Sulfate 1 gm/ Sodium (Chloride) 102 mls @ 102 mls/hr IV PRN PRN PRN Reason: MAG LEVEL 1.4 - 2.0 Magnesium Sulfate 2 gm/ Device 50 mls @ 50 mls/hr IVPB ASDIR PRN PRN Reason: MAGNESIUM < 1.4 Potassium Phosphate 9 mmol/ (Sodium Chloride) 103 mls @ 25.75 mls/hr IVPB ASDIR PRN PRN Reason: Phosphate 1.0-1.8 Potassium Phosphate 12 mmol/ (Sodium Chloride) 254 mls @ 63.5 mls/hr IV ASDIR PRN PRN Reason: Serum phosphate 0.5-0.9 Potassium Phosphate 15 mmol/ (Sodium Chloride) 255 mls @ 63.75 mls/hr IV ASDIR PRN PRN Reason: Serum Phos < 0.5 Dextrose/Water (D5w) 1,000 mls @ 0 mls/hr IV .Q0M PRN PRN Reason: Hypoglycemia Cefepime HCl 2 gm/ Sodium (Chloride) 100 mls @ 200 mls/hr IVPB 0200,1400 [facility] Last Admin: 09/13/19 14:42 Dose: 100 mls Dexmedetomidine HCl 200 mcg/ (Sodium Chloride) 50 mls @ 0 mls/hr IVPB INF [facility]; Protocol Last Admin: 09/12/19 20:12 Dose: 50 mls Insulin Human Lispro (Humalog) 0 units SC .MILD SLIDING SCALE PRN PRN Reason: Mild Correctional Scale Last Admin: 09/13/19 12:15 Dose: 4 units Insulin Human Lispro (Humalog) 0 units SC .BEDTIME SLIDING SC PRN PRN Reason: Bedtime Correctional Scale Isosorbide Dinitrate (Isordil) 20 mg PER TUBE TID [facility] Last Admin: 09/13/19 14:43 Dose: 20 mg Magnesium Oxide (Magnesium Oxide) 400 mg PO BIDPRN PRN PRN Reason: FOR SERUM MAG 1.4 - 2.0 Magnesium Oxide (Magnesium Oxide) 800 mg PO PRN PRN PRN Reason: FOR SERUM MAG < 1.4 Mexiletine HCl (Mexiletine Hcl) 150 mg PO TID [facility] Last Admin: 09/13/19 14:43 Dose: 150 mg Mineral Oil/White Petrolatum (Lacri-Lube Opth 7 Gm Ointment) 7 gm EA EYE BID [facility] Stop: 09/15/19 09:01 Last Admin: 09/13/19 11:05 Dose: 7 gm Miscellaneous Medication (Phos-Nak) 1 pkt PO TIDPRN PRN PRN Reason: FOR PHOS LEVEL 1.0 - 1.8 Miscellaneous Medication (Phos-Nak) 2 pkt PO TIDPRN PRN PRN Reason: FOR PHOS LEVEL 0.5 - 1.0 Miscellaneous Medication (Pharmacy To Dose) 1 each IVPB PRN PRN PRN Reason: Pharmacy to dose Modafinil (Provigil) 100 mg PER TUBE DAILY [facility] Last Admin: 09/13/19 11:10 Dose: Not Given Ccu Electrolyte (Replacement Protocol) 0 each FS PRN PRN PRN Reason: FOR ELECTROLYTE REPLACEMENT Ondansetron HCl (Zofran Odt) 4 mg PO Q6H PRN PRN Reason: Nausea/Vomiting Ondansetron HCl (Zofran) 4 mg IVP Q6H PRN PRN Reason: Nausea/Vomiting Potassium Chloride (K-Dur) 40 meq PO ASDIR PRN PRN Reason: FOR SERUM K+ 2.5 - 3.5 Potassium Chloride (Klor-Con) 40 meq PER TUBE ASDIR PRN PRN Reason: FOR SERUM K+ 2.5-3.5 Ranolazine (Ranexa) 500 mg PO BID [facility] Last Admin: 09/13/19 11:10 Dose: Not Given Scopolamine (Transderm Scop) 1.5 mg TD Q3D [facility] Last Admin: 09/11/19 15:35 Dose: 1.5 mg Sodium Chloride (Flush - Normal Saline) 10 ml IVF Q12HR [facility] Last Admin: 09/13/19 11:10 Dose: 10 ml Sodium Chloride (Flush - Normal Saline) 10 ml IVF PRN PRN PRN Reason: Saline Flush Last Admin: 09/12/19 13:34 Dose: 10 ml Spironolactone (Aldactone) 25 mg PO QAM-WM [facility] Last Admin: 09/13/19 11:09 Dose: 25 mg Warfarin Sodium (Coumadin) 5 mg PER TUBE 1700 [facility] Last Admin: 09/12/19 16:01 Dose: 5 mg Vital Signs & Weight: Vital Signs Temp Pulse Pulse Pulse Resp BP BP 09/13/19 16:00 101.0 F H 09/13/19 14:43 77 104/62 09/13/19 14:28 80 104/62 09/13/19 14:27 79 16 09/13/19 14:00 13 09/13/19 13:32 75 78 111/64 09/13/19 12:00 100.9 F H 12 09/13/19 11:07 74 129/79 09/13/19 10:25 72 129/72 09/13/19 10:24 65 18 09/13/19 10:00 16 09/13/19 08:00 99.9 F H 19 09/13/19 06:41 70 110/59 L 09/13/19 06:40 71 10 L 09/13/19 06:00 12 BP Pulse Ox Pulse Ox Pulse Ox 09/13/19 16:00 09/13/19 14:43 09/13/19 14:28 09/13/19 14:27 99 09/13/19 14:00 09/13/19 13:32 118/63 97 98 09/13/19 12:00 09/13/19 11:07 09/13/19 10:25 09/13/19 10:24 98 09/13/19 10:00 09/13/19 08:00 09/13/19 06:41 09/13/19 06:40 97 09/13/19 06:00 Admit Weight 238 lb 15.697 oz Weight 226 lb 6.636 oz - Physical Exam General: other HEENT: normocephaly Neck: supple neck Cardiac: regular rate and rhythm Lungs: normal breath sounds Neuro: other (Intubated) Abdomen: active bowel sounds Extremities: 1+ LE edema Skin: clear Musculoskeletal: normal range of motion - Labs Result Diagrams: 09/13/19 05:59 09/13/19 05:59 Troponin/CKMB CK-MB (CK-2) 6.4 ng/mL (0-6.6) 09/06/19 19:46 Troponin I 0.054 ng/mL (< 0.028) H 09/07/19 05:55 - Telemetry Sinus rhythms and dysrhythmias: other (Sinus rhythm, V paced.) - Assessment/Plan Assessment/Plan: 1. Acute respiratory failure requiring mechanical ventilation 2. s/p Cardiopulmonary arrest 3. Dilated CM, severe 4. Thalamic brain stem infarct. 5. AICD bi ventricular in place. PLAN; - Continue supportive care. - Will hold nitrates and hydralazine as BP is borderline low. - Continue BB, Aldactone, warfarin.
[2019-09-13] MEDS: Warfarin Sodium 5 MG TAB PER TUBE SCH (16:57)
[2019-09-13] MEDS ORDERED: Pancrelipase DR 12000 1 CAP FS PRN (19:09)
[2019-09-13] MEDS ORDERED: Sodium Bicarbonate Tab 325 MG TAB PER TUBE PRN (19:09)
--- NOTE | 2019-09-13 20:54 | PDOC.FMACP ---
Advance Care Planning - Problem (1) Encephalopathy Status: Acute Code(s): G93.40 - ENCEPHALOPATHY, UNSPECIFIED (2) Acute CVA (cerebrovascular accident) Status: Acute Code(s): I63.9 - CEREBRAL INFARCTION, UNSPECIFIED - Note Participants: family, surrogate decision-maker (Souse) Summary: Advanced Care Planning was discussed. The diagnosis, prognosis and goals of care were discussed. Appropriate forms and documentation to accomplish the goals of care were discussed. All questions were answered. The Palliative Care Team will be engaged to assist with completion of any outstanding forms that are needed. DNR per DPOA. Time Spent (mins): 20
--- NOTE | 2019-09-13 20:57 | PDOC.HOSPP ---
- Subjective Encounter Date: 09/13/19 Encounter Time: 10:15 non-verbal Subjective: Patient seen and examined for Acute CVA. No overnight events - Objective Vital Signs & Weight: Vital Signs (12 hours) Temp Pulse Pulse Pulse Resp BP BP 09/13/19 18:35 79 114/74 09/13/19 18:00 14 09/13/19 16:43 09/13/19 16:00 101.0 F H 17 09/13/19 14:43 77 104/62 09/13/19 14:28 80 104/62 09/13/19 14:27 79 16 09/13/19 14:00 13 09/13/19 13:32 75 78 111/64 09/13/19 12:00 100.9 F H 12 09/13/19 11:07 74 129/79 09/13/19 10:25 72 129/72 09/13/19 10:24 65 18 09/13/19 10:00 16 BP Pulse Ox Pulse Ox Pulse Ox 09/13/19 18:35 09/13/19 18:00 09/13/19 16:43 99 09/13/19 16:00 09/13/19 14:43 09/13/19 14:28 09/13/19 14:27 99 09/13/19 14:00 09/13/19 13:32 118/63 97 98 09/13/19 12:00 09/13/19 11:07 09/13/19 10:25 09/13/19 10:24 98 09/13/19 10:00 Weight Admit Weight 238 lb 15.697 oz Weight 226 lb 6.636 oz Most Recent Monitor Data Heart Rate from ECG 85 NIBP 138/74 NIBP BP-Mean 95 Respiration from ECG 17 SpO2 97 I&O: 09/12/19 09/13/19 09/14/19 06:59 06:59 06:59 Intake Total 1557 2111 1350 Output Total 0790 9550 1120 Balance -533 -432 230 Result Diagrams: 09/13/19 05:59 09/13/19 05:59 Additional Labs: Accuchecks 09/13/19 09/13/19 09/13/19 16:28 12:13 03:49 POC Glucose 315 H 284 H 264 H EKG Reviewed by me: Yes (Tele paced) Hospitalist ROS - Review of Systems ROS unobtainable: due to mental status - Medication Medications: Active Medications Generic Name Dose Route Start Last Admin Trade Name Freq PRN Reason Stop Dose Admin Acetaminophen 650 mg 09/06/19 23:13 09/08/19 13:31 Tylenol [place] 650 mg Q4H PRN Administration Fever > 101 Acetaminophen 650 mg 09/11/19 18:19 09/12/19 20:49 Tylenol Elixir PER TUBE 650 mg Q4H PRN Administration FEVER > 101 Albuterol/Ipratropium 3 ml 09/08/19 18:30 09/13/19 18:34 Duoneb NEB 3 ml [id number] [facility] Administration Atorvastatin Calcium 80 mg 09/07/19 21:00 09/12/19 20:36 Lipitor PO 80 mg HS [facility] Administration Carvedilol 3.125 mg 09/07/19 21:00 09/13/19 11:07 Coreg PO 3.125 mg BID [facility] Administration Clopidogrel Bisulfate 75 mg 09/08/19 09:00 09/13/19 11:09 Plavix PO 75 mg DAILY [facility] Administration Furosemide 40 mg 09/11/19 14:00 09/13/19 14:43 Lasix SLOW IVP 40 mg 0600,1400 [facility] Administration Cefepime HCl 2 gm/ Sodium 100 mls @ 200 mls/hr 09/08/19 02:00 09/13/19 14:42 Chloride IVPB 100 mls 0200,1400 [facility] Administration Dexmedetomidine HCl 200 mcg/ 50 mls @ 0 mls/hr 09/12/19 19:30 09/12/19 20:12 Sodium Chloride IVPB 50 mls INF [facility] Administration Protocol Titrate Mexiletine HCl 150 mg 09/07/19 15:00 09/13/19 14:43 Mexiletine Hcl PO 150 mg TID [facility] Administration Mineral Oil/White Petrolatum 7 gm 09/11/19 21:00 09/13/19 11:05 Lacri-Lube Opth 7 Gm Ointment EA EYE 09/15/19 09:01 7 gm BID [facility] Administration Modafinil 100 mg 09/09/19 09:00 09/13/19 11:10 Provigil PER TUBE Not Given DAILY [facility] Ranolazine 500 mg 09/07/19 21:00 09/13/19 11:10 Ranexa PO Not Given BID [facility] Scopolamine 1.5 mg 09/08/19 16:30 09/11/19 15:35 Transderm Scop TD 1.5 mg Q3D [facility] Administration Sodium Chloride 10 ml 09/07/19 09:00 09/13/19 11:10 Flush - Normal Saline IVF 10 ml Q12HR [facility] Administration Sodium Chloride 10 ml 09/07/19 07:55 09/12/19 13:34 Flush - Normal Saline IVF 10 ml PRN PRN Administration Saline Flush Spironolactone 25 mg 09/12/19 08:00 09/13/19 11:09 Aldactone PO 25 mg QAM-WM [facility] Administration Warfarin Sodium 5 mg 09/12/19 17:00 09/13/19 16:57 Coumadin PER TUBE 5 mg 1700 [facility] Administration - Exam General Appearance: NAD (on Vent) Heart: RRR, no gallops Respiratory: CTAB, no rales Gastrointestinal: soft, non-tender, normal bowel sounds Extremities: no edema Psychiatric: lethargic Hosp A/P - Plan plan discussed w/ family (Spouse) Acute hypoxic Resp failure - failed extubation 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
[2019-09-13] MEDS ORDERED: NPH, Human Insulin Isophane 300 UNIT/3 ML VIAL SC SCH (21:00)
[2019-09-13] MEDS: Atorvastatin Calcium 40 MG TAB PO SCH (21:29)
[2019-09-13] MEDS: Acetaminophen 650 MG/20.3 ML UDCUP PER TUBE PRN (21:39)
[2019-09-13] MEDS ORDERED: Vancomycin HCl 1 GM in Premix Bag 1 BAG IVPB SCH (22:00)
[2019-09-13] MEDS ORDERED: metroNIDAZOLE 500 MG in Premix Bag 1 BAG IVPB SCH (22:00)
[2019-09-14] MEDS: Cefepime 2 GM in Sodium Chloride 0.9% 100 ML IVPB SCH (01:50)
[2019-09-14 05:35] LABS: #Basophils 0.1 thou/uL (0.0-0.2); #Eosinphils 0.1 thou/uL (0.0-0.7); #Lymphocytes 1.1 thou/uL (1.20-3.40); #Monocytes 1.4 thou/uL (0.11-0.59); %Basophils 0.5 % (0.0-1.0); %Eosinophils 1.4 % (0.0-10.0); %Lymphocytes 11.1 % (21.0-51.0); %Monocytes 14.2 % (0.0-10.0); %Neutrophils 72.8 % (42.0-75.0); Hemoglobin 12.6 g/dL (14.0-18.0); Mean Corpuscular HGB CONC 30.5 g/dL (32.0-36.0); Mean Corpuscular Hemoglobin 29.5 pg (27.0-31.0); Mean Corpuscular Volume 96.8 fL (78.0-98.0); Mean Platelet Volume 9.2 fL (7.4-10.4); Platelet Count 318 thou/uL (130-400); RBC Distribution Width 12.6 % (11.5-14.5); Red Blood Cell (RBC) Count 4.28 mill/uL (4.70-6.10); White Blood Cell (WBC) Count 9.6 thou/uL (4.8-10.8)
[2019-09-14 05:43] LABS: INR-International Normal Ratio 2.6; PTT 51.4 SEC (22.9-36.1); Prothrombin Time 27.8 SEC (12.0-14.7)
[2019-09-14 05:56] LABS: Anion Gap 16 mmol/L (10-20); BUN (Urea Nitrogen) 85 mg/dL (8.4-25.7); Calc. Creatinine Clearance 45 mL/min (70-130); Calcium 9.5 mg/dL (7.8-10.44); Carbon Dioxide 26 mmol/L (23-31); Chloride 108 mmol/L (98-107); Estimated GFR-MDRD 29; Glucose 322 mg/dL (80-115); Potassium 3.8 mmol/L (3.5-5.1); Sodium 146 mmol/L (136-145)
[2019-09-14] MEDS: HumaLOG 300 UNITS/3 ML VIAL SC PRN ×2 (06:01→10:52)
[2019-09-14] MEDS: Furosemide 40 MG/4 ML VIAL SLOW IVP SCH (06:03)
--- NOTE | 2019-09-14 07:32 | RAD ---
EXAM: Portable chest PROVIDED CLINICAL HISTORY: Respiratory insufficiency COMPARISON: 09/13/2019 FINDINGS: Significant interval change with respect to the prior examination is not apparent. Enteric catheter t ip is not well visualized. IMPRESSION: As above.
[2019-09-14] MEDS ORDERED: Famotidine 20 MG TAB PER TUBE SCH (09:00)
[2019-09-14] MEDS ORDERED: Cyanocobalamin (Vitamin B-12) 1,000 MCG TAB PER TUBE SCH (09:00)
[2019-09-14] MEDS ORDERED: NPH, Human Insulin Isophane 300 UNIT/3 ML VIAL SC SCH ×3 (09:00→21:00)
[2019-09-14] MEDS: Spironolactone 25 MG TAB PO SCH (09:52)
[2019-09-14] MEDS: Carvedilol 3.125 MG TAB PO SCH (09:52)
[2019-09-14] MEDS: Refresh Lacri-lube Opth Oint 7 GM TUBE EA EYE SCH (09:52)
[2019-09-14] MEDS: Mexiletine HCl 150 MG CAP PO SCH (09:53)
[2019-09-14] MEDS: Clopidogrel Bisulfate 75 MG TAB PO SCH (09:53)
[2019-09-14] MEDS: Modafinil 100 MG TAB PER TUBE SCH (10:29)
[2019-09-14 11:23] VITALS: BP 118/73
--- NOTE | 2019-09-14 12:07 | PDOC.CPN ---
- Subjective Date: 09/14/19 Time: 12:05 Interval history: Remains intubated, non responsive. - Review of Systems ROS unobtainable: due to endotracheal tube - Objective Allergies/Adverse Reactions: Allergies Allergy/AdvReac Type Severity Reaction Status Date / Time No Known Allergies Allergy Verified 09/07/19 05:38 Visit Medications: Current Medications Acetaminophen (Tylenol) 650 mg [place] Q4H PRN PRN Reason: Fever > 101 Last Admin: 09/08/19 13:31 Dose: 650 mg Acetaminophen (Tylenol Elixir) 650 mg PER TUBE Q4H PRN PRN Reason: FEVER > 101 Last Admin: 09/13/19 21:39 Dose: 650 mg Albuterol/Ipratropium (Duoneb) 3 ml NEB [id number] [facility] Last Admin: 09/14/19 11:21 Dose: 3 ml Lipase/Protease/Amylase ([place] [id number]) 1 cap FS .PER PROTOCOL PRN PRN Reason: TUBE OCCLUSION PROTOCOL Atorvastatin Calcium (Lipitor) 80 mg PO HS [facility] Last Admin: 09/13/19 21:29 Dose: 80 mg Carvedilol (Coreg) 3.125 mg PO BID [facility] Last Admin: 09/14/19 09:52 Dose: 3.125 mg Clopidogrel Bisulfate (Plavix) 75 mg PO DAILY [facility] Last Admin: 09/14/19 09:53 Dose: 75 mg Cyanocobalamin (Vitamin B-12) 1,000 mcg PER TUBE DAILY [facility] Last Admin: 09/14/19 09:53 Dose: 1,000 mcg Dextrose/Water (Dextrose 50%) 25 gm SLOW IVP PRN PRN PRN Reason: Hypoglycemia Famotidine (Pepcid) 20 mg PER TUBE DAILY [facility] Last Admin: 09/14/19 09:53 Dose: 20 mg Furosemide (Lasix) 40 mg SLOW IVP 0600,1400 [facility] Last Admin: 09/14/19 06:03 Dose: 40 mg Glucagon (Glucagon) 1 mg IM PRN PRN PRN Reason: Hypoglycemia Hydralazine HCl (Apresoline) 10 mg SLOW IVP Q4H PRN PRN Reason: SBP > 180 and HR < 70 Potassium Chloride 40 meq/ (Sodium Chloride) 270 mls @ 135 mls/hr IVPB ASDIR PRN PRN Reason: FOR SERUM K+ 2.5 - 3.5 Potassium Chloride 40 meq/ (Device) 100 mls @ 50 mls/hr IVPB ASDIR PRN PRN Reason: FOR SERUM K+ 2.5 - 3.5 Magnesium Sulfate 1 gm/ Sodium (Chloride) 102 mls @ 102 mls/hr IV PRN PRN PRN Reason: MAG LEVEL 1.4 - 2.0 Magnesium Sulfate 2 gm/ Device 50 mls @ 50 mls/hr IVPB ASDIR PRN PRN Reason: MAGNESIUM < 1.4 Potassium Phosphate 9 mmol/ (Sodium Chloride) 103 mls @ 25.75 mls/hr IVPB ASDIR PRN PRN Reason: Phosphate 1.0-1.8 Potassium Phosphate 12 mmol/ (Sodium Chloride) 254 mls @ 63.5 mls/hr IV ASDIR PRN PRN Reason: Serum phosphate 0.5-0.9 Potassium Phosphate 15 mmol/ (Sodium Chloride) 255 mls @ 63.75 mls/hr IV ASDIR PRN PRN Reason: Serum Phos < 0.5 Dextrose/Water (D5w) 1,000 mls @ 0 mls/hr IV .Q0M PRN PRN Reason: Hypoglycemia Cefepime HCl 2 gm/ Sodium (Chloride) 100 mls @ 200 mls/hr IVPB 0200,1400 [facility] Last Admin: 09/14/19 01:50 Dose: 100 mls Dexmedetomidine HCl 200 mcg/ (Sodium Chloride) 50 mls @ 0 mls/hr IVPB INF [facility]; Protocol Last Admin: 09/12/19 20:12 Dose: 50 mls Insulin Human Lispro (Humalog) 0 units SC .BEDTIME SLIDING SC PRN PRN Reason: Bedtime Correctional Scale Insulin Human Lispro (Humalog) 0 units SC .AGGRESSIVE SLIDING PRN PRN Reason: Aggressive Correctional Scale Last Admin: 09/14/19 10:52 Dose: 6 units Insulin Human NPH (Humulin N) 25 unit SC QPM [facility] Insulin Human NPH (Humulin N) 30 unit SC QAM [facility] Last Admin: 09/14/19 09:51 Dose: 30 unit Magnesium Oxide (Magnesium Oxide) 400 mg PO BIDPRN PRN PRN Reason: FOR SERUM MAG 1.4 - 2.0 Magnesium Oxide (Magnesium Oxide) 800 mg PO PRN PRN PRN Reason: FOR SERUM MAG < 1.4 Mexiletine HCl (Mexiletine Hcl) 150 mg PO TID [facility] Last Admin: 09/14/19 09:53 Dose: 150 mg Mineral Oil/White Petrolatum (Lacri-Lube Opth 7 Gm Ointment) 7 gm EA EYE BID [facility] Stop: 09/15/19 09:01 Last Admin: 09/14/19 09:52 Dose: 7 gm Miscellaneous Medication (Phos-Nak) 1 pkt PO TIDPRN PRN PRN Reason: FOR PHOS LEVEL 1.0 - 1.8 Miscellaneous Medication (Phos-Nak) 2 pkt PO TIDPRN PRN PRN Reason: FOR PHOS LEVEL 0.5 - 1.0 Miscellaneous Medication (Pharmacy To Dose) 1 each IVPB PRN PRN PRN Reason: Pharmacy to dose Modafinil (Provigil) 100 mg PER TUBE DAILY [facility] Last Admin: 09/14/19 10:29 Dose: 100 mg Ccu Electrolyte (Replacement Protocol) 0 each FS PRN PRN PRN Reason: FOR ELECTROLYTE REPLACEMENT Ondansetron HCl (Zofran Odt) 4 mg PO Q6H PRN PRN Reason: Nausea/Vomiting Ondansetron HCl (Zofran) 4 mg IVP Q6H PRN PRN Reason: Nausea/Vomiting Potassium Chloride (K-Dur) 40 meq PO ASDIR PRN PRN Reason: FOR SERUM K+ 2.5 - 3.5 Potassium Chloride (Klor-Con) 40 meq PER TUBE ASDIR PRN PRN Reason: FOR SERUM K+ 2.5-3.5 Ranolazine (Ranexa) 500 mg PO BID [facility] Last Admin: 09/14/19 09:53 Dose: Not Given Scopolamine (Transderm Scop) 1.5 mg TD Q3D [facility] Last Admin: 09/11/19 15:35 Dose: 1.5 mg Sodium Bicarbonate (Bicarbonate, Sodium) 650 mg PER TUBE .PER PROTOCOL PRN PRN Reason: ENTERAL TUBE OCCLUSION Sodium Chloride (Flush - Normal Saline) 10 ml IVF Q12HR [facility] Last Admin: 09/14/19 09:53 Dose: 10 ml Sodium Chloride (Flush - Normal Saline) 10 ml IVF PRN PRN PRN Reason: Saline Flush Last Admin: 09/12/19 13:34 Dose: 10 ml Spironolactone (Aldactone) 25 mg PO QAM[facility] Last Admin: 09/14/19 09:52 Dose: 25 mg Warfarin Sodium (Coumadin) 5 mg PER TUBE 1700 [facility] Last Admin: 09/13/19 16:57 Dose: 5 mg Vital Signs & Weight: Vital Signs Temp Pulse Resp BP Pulse Ox 09/14/19 11:22 74 118/73 09/14/19 11:21 73 11 L 99 09/14/19 10:00 14 09/14/19 08:12 69 122/81 09/14/19 08:11 67 11 L 97 09/14/19 08:00 99.9 F H 14 98 09/14/19 06:00 11 L 09/14/19 04:00 100.6 F H 10 L 09/14/19 02:27 68 122/73 09/14/19 02:00 10 L Admit Weight 238 lb 15.697 oz Weight 225 lb 15.581 oz - Physical Exam General: no apparent distress HEENT: mucus membranes moist Neck: supple neck Cardiac: regular rate and rhythm Lungs: clear to auscultation Neuro: other (Sedated, intubated.) Abdomen: active bowel sounds Extremities: no edema Skin: clear Musculoskeletal: no fluid collection - Labs Result Diagrams: 09/14/19 04:55 09/14/19 04:55 Troponin/CKMB CK-MB (CK-2) 6.4 ng/mL (0-6.6) 09/06/19 19:46 Troponin I 0.054 ng/mL (< 0.028) H 09/07/19 05:55 - Telemetry Sinus rhythms and dysrhythmias: other (NSR, V paced.) - Assessment/Plan Assessment/Plan: 1. Acute respiratory failure requiring mechanical ventilation 2. s/p Cardiopulmonary arrest 3. Dilated CM, severe 4. Thalamic brain stem infarct. 5. AICD bi ventricular in place. PLAN; - Continue supportive care. - Continue BB, Aldactone, warfarin. - updated at bedside. - Severely ill and should be unexpected. - Critical Care Time Critical care time (mins): 30
[2019-09-14 12:16] VITALS: TEMP 101.4
--- NOTE | 2019-09-14 13:14 | PRG ---
DATE OF SERVICE: 09/14/2019 SERVICE: Pulmonary Medicine. INTERVAL HISTORY: The patient is doing fine from respiratory standpoint. That being said, he is only intermittently responsive. Apparently, from time to time , they can get a squeeze of the left upper extremity, but otherwise, he is basically nonresponsive. He cannot provide any additional elements of the history. He is requiring absolutely no sedation. PHYSICAL EXAMINATION: VITAL SIGNS: Current temperature 101.4. Pulse 74, blood pressure 131/72, respirations 17, and saturation 98%, currently on 41% FiO2 and a PEEP of 5. GENERAL: The patient is intubated. He is under the influence of no sedation. HEENT: Normocephalic and atraumatic. Sclerae white. Conjunctivae pink. Oral mucosa is moist without lesions. LUNGS: Decent air entry with rhonchi present. There is a slightly prolonged expiratory phase, but no wheezing is appreciated. No dependent crackles. HEART: Normal rate. Regular. ABDOMEN: Soft, nontender, and nondistended. Bowel sounds are positive. MUSCULOSKELETAL: No cyanosis or clubbing. No pitting in the bilateral lower extremities. NEUROLOGIC: Grossly nonfocal. LABORATORY DATA: WBC 9.6, hemoglobin 12.6, and platelets 319,000. Differential is pretty close to normal. INR 2.6. Creatinine 2.23 and up trending. BUN 85. Sodium 146. Urinalysis is unremarkable. Urine drug screen is negative. Blood cultures x4 and urine culture are negative to-date. IMAGING: Chest x-ray demonstrates infiltrate in the right lower lobe. Endotracheal tube is in good position. Cardiac silhouette is very impressive. There is likely left-sided pleural parenchymal disease like an effusion. There has been no significant interval change. ASSESSMENT: 1. Acute hypoxic respiratory failure. 2. CVA, left thalamic infarct. 3. Acute on chronic systolic and diastolic heart failure. DISCUSSION AND PLAN: The patient is pretty close to euvolemia. He is having fevers, but it is likely neurogenic in origin. We will continue our supportive care for the time being, but it appears that the family would like to transition over to comfort care only. If they truly want to move in this direction, all interventions will be discontinued, and we will extubate him to comfort measures only. Pulmonary will follow in this location. CRITICAL CARE TIME: 30 minutes. Job ID: [id number] [facility]
[2019-09-14] MEDS: Lorazepam 2 MG/ML VIAL SLOW IVP PRN ×7 (13:29→15:17)
[2019-09-14] MEDS: Morphine 2 MG/ML SYRINGE SLOW IVP PRN ×8 (13:29→15:16)
--- NOTE | 2019-09-14 13:36 | PDOC.HOSPP ---
- Subjective Encounter Date: 09/14/19 Encounter Time: 10:45 non-verbal Subjective: Patient seen and examined for Acute CVA/Resp failure. On Vent. Unresponsive. Not on sedation. No overnight events - Objective Vital Signs & Weight: Vital Signs (12 hours) Temp Pulse Resp BP Pulse Ox 09/14/19 13:25 72 32 H 95 09/14/19 12:00 101.4 F H 10 L 09/14/19 11:22 74 118/73 09/14/19 11:21 73 11 L 99 09/14/19 10:00 10 L 09/14/19 08:12 69 122/81 09/14/19 08:11 67 11 L 97 09/14/19 08:00 99.9 F H 14 98 09/14/19 06:00 11 L 09/14/19 04:00 100.6 F H 10 L 09/14/19 02:27 68 122/73 09/14/19 02:00 10 L Weight Admit Weight 238 lb 15.697 oz Weight 225 lb 15.581 oz Most Recent Monitor Data Heart Rate from ECG 75 NIBP 131/72 NIBP BP-Mean 91 Respiration from ECG 17 SpO2 98 I&O: 09/13/19 09/14/19 09/15/19 06:59 06:59 06:59 Intake Total 2111 2669 95 Output Total 2370 1810 870 Balance -259 031 -965 Result Diagrams: 09/14/19 04:55 09/14/19 04:55 Additional Labs: Accuchecks 09/14/19 09/14/19 09/13/19 10:34 04:08 21:29 POC Glucose 326 H 289 H 262 H 09/13/19 16:28 POC Glucose 315 H EKG Reviewed by me: Yes (Tele Paced) Hospitalist ROS - Review of Systems ROS unobtainable: due to mental status - Medication Medications: Active Medications Generic Name Dose Route Start Last Admin Trade Name Freq PRN Reason Stop Dose Admin Lorazepam 2 mg 09/14/19 13:20 09/14/19 13:29 Ativan SLOW IVP 2 mg Q15MIN PRN Administration Anxiety Morphine Sulfate 2 mg 09/14/19 13:20 09/14/19 13:29 Morphine SLOW IVP 2 mg Q15MIN PRN Administration SOB/COMFORT - Exam General Appearance: NAD General - other findings: on Vent. Tolerating PEG feeds Heart: RRR, no gallops Respiratory: no rales, rhonchi Gastrointestinal: soft, non-tender, normal bowel sounds Extremities: no edema Psychiatric: not oriented Hosp A/P - Plan Acute hypoxic Resp failure - failed extubation - reintubated on 09/08 Encephalopathy suspected due to Left Thalamic/midbrain CVA Aspiration Pneumonia Chronic systolic/Diastolic HF s/p AICD Chr Afib - on anticoag - Subtherapeutic INR on admission Obesity BMI 30.7 CAD Type 2 NE CLAUDE on CKD 2 DM2 HTN Rhabdomyolysis on admission - improving Vit B12 def (low normal) PLAN: Plan d/w with family at bedside. Patient is DNR Await family d/w Dr Winn Cont Coreg/Ranexa/Warfarin/Plavix Increase NPH insulin Change sliding scale Cont Vent support/Atbx
--- NOTE | 2019-09-16 12:26 | DIS ---
DATE OF ADMISSION: 09/06/2019 DATE OF DISCHARGE: 09/14/2019 DATE : 09/14/2019 at 1610. BRIEF HOSPITAL COURSE: The patient was a 69-year-old male with coronary artery disease, diabetes mellitus type 2; atrial fibrillation, on anticoagulation; CKD, hypertension, and prostate cancer, was found unresponsive in his cell. He was intubated prior to ER arrival. He apparently had pulse and did not require CPR. Please refer to the history and physical for further details. The patient was admitted to the intensive care unit with a diagnosis of acute hypoxic respiratory failure. He remained on mechanical ventilation. He failed extubation requiring reintubation. He remained encephalopathic during the whole hospital course. Repeat CT scan was consistent with left thalamic CVA. The patient was evaluated by Neurology, Dr. Winn. MRI was not done due to pacemaker. The family was updated. Due to extreme poor prognosis, the family decided on terminal extubation. They discussed with Dr. Winn prior to extubation as well. The patient on 09/14/2019, at 1610. Please refer to the consultation note for further details of this hospitalization. FINAL DIAGNOSES: 1. Acute hypoxic respiratory failure. 2. Encephalopathy due to left thalamic/midbrain cerebrovascular accident. 3. Aspiration pneumonia. 4. Chronic systolic/diastolic heart failure, status post AICD. Echocardiogram in this admission showed ejection fraction 10% to 15%. 5. Chronic atrial fibrillation, on anticoagulation with subtherapeutic INR on admission. 6. Obesity with a BMI of 30.7. 7. Coronary artery disease. 8. Type 2 myocardial infarction. 9. Acute kidney injury on chronic kidney disease stage 2. His maximum creatinine in this admission was 2.23. 10. Diabetes mellitus type 2. 11. Hypertension. 12. Rhabdomyolysis on admission. 13. Vitamin B12 deficiency. Job ID: [id number]
== END 2019-09-14 16:10 | disposition expired | DRG 207 ==
LOC: ERS 19:20 → CCU 23:06
PROVIDERS: ADMIT Family Medicine; ATTEND Family Medicine
PROC: 5A1945Z Respiratory Ventilation, 24-96 Consecutive Hours (ICD-10-PCS; principal; 2019-09-06)
PROC: 0BH17EZ Insertion of Endotracheal Airway into Trachea, Via Natural or Artificial Opening (ICD-10-PCS; 2019-09-06)
PROC: 5A1955Z Respiratory Ventilation, Greater than 96 Consecutive Hours (ICD-10-PCS; 2019-09-08)
PROC: 0BC68ZZ Extirpation of Matter from Right Lower Lobe Bronchus, Via Natural or Artificial Opening Endoscopic (ICD-10-PCS; 2019-09-08)
PROC: 0BC38ZZ Extirpation of Matter from Right Main Bronchus, Via Natural or Artificial Opening Endoscopic (ICD-10-PCS; 2019-09-08)
PROC: 0BH18EZ Insertion of Endotracheal Airway into Trachea, Via Natural or Artificial Opening Endoscopic (ICD-10-PCS; 2019-09-08)
PROC: 0BC28ZZ Extirpation of Matter from Carina, Via Natural or Artificial Opening Endoscopic (ICD-10-PCS; 2019-09-08)
DX: J96.01 Acute respiratory failure with hypoxia (principal); I63.412 Cerebral infarction due to embolism of left middle cerebral artery; R40.2112 Coma scale, eyes open, never, at arrival to emergency department; R40.2212 Coma scale, best verbal response, none, at arrival to emergency department; R40.2342 Coma scale, best motor response, flexion withdrawal, at arrival to emergency department; J69.0 Pneumonitis due to inhalation of food and vomit; I13.0 Hypertensive heart and chronic kidney disease with heart failure and stage 1 through stage 4 chronic kidney disease, or unspecified chronic kidney disease; M62.82 Rhabdomyolysis; N17.9 Acute kidney failure, unspecified; I50.42 Chronic combined systolic (congestive) and diastolic (congestive) heart failure; I42.8 Other cardiomyopathies; G93.49 Other encephalopathy; I25.10 Atherosclerotic heart disease of native coronary artery without angina pectoris; N18.3 Chronic kidney disease, stage 3 (moderate); E11.22 Type 2 diabetes mellitus with diabetic chronic kidney disease; E78.5 Hyperlipidemia, unspecified; Z79.02 Long term (current) use of antithrombotics/antiplatelets; I49.5 Sick sinus syndrome; Z85.46 Personal history of malignant neoplasm of prostate; I48.0 Paroxysmal atrial fibrillation; Z68.30 Body mass index [BMI] 30.0-30.9, adult; Z95.810 Presence of automatic (implantable) cardiac defibrillator; E66.01 Morbid (severe) obesity due to excess calories; E53.8 Deficiency of other specified B group vitamins; Z79.01 Long term (current) use of anticoagulants; Z66 Do not resuscitate; Z79.4 Long term (current) use of insulin
CPT/HCPCS: 31500; 36415; 36416; 51702; 70450; 70496; 70498; 71045; 80048; 80053; 80306; 80307; 81003; 82140; 82550; 82553; 82607; 82746; 82805; 83036; 83735; 83880; 84443; 84484; 85007; 85025; 85027; 85610; 85730; 87040; 87086; 87149; 93005; 93306; 94003; 94640; 94660; 96365; 96366; J0692; J1815; J1940; J2060; J2270; J3010; J3370; J3490; J7620; Q9966; S0028